=== PATIENT | male | born 1940 | race Caucasian/White ===

== ENCOUNTER → 2016-06-25 | Outpatient (CLI) | payer MEDICARE, BC ==
[~2016-06-25] MED LIST: /AMIO20TA; /ONDA4TA OR; /PROM25SU RE; /SCOPPA TD; /WARF25TA OR; /WARF5TA; /WARF5TA OR; ACET65TA; ACET65TA OR; AMBI10TA OR; AMBI5TAB OR; AMIO0.1T PO; ASPI81TA45; ASPI81TA83 OR; ASPI81TA85 PO; ATARAX OR; BABY81CH OR; CARV12.5 PO; CELE10TA OR; COLA100C2; COLA100C2 OR; CORE3.12 OR; CORE6.25; CORE6.25 OR; COUM1TAB17 PO; COUM7.5T PO; CRES20TA; CRES20TA OR; CRES20TA PO; DEXILANT PO; DOCU10CA PO; FISH1000 OR; FISH120012 PO; FLON1SPR; HYDR25TA6; HYDR25TA6 OR; LEVO100T5 PO; LISI20TA5 OR; LOVE1INJ2 SC; MEGA40SU OR; META0.52 PO; METO10TA2 OR; MIRALEX PO; Metamucil PO; OMEGA 3 FISH OIL PO; OMEP20TA7 OR; OMEP40CA2 PO; PLAV75TA38 PO; POLYOPD OU; PRIN20TA3; PRIN5TAB PO; REST0.05 OU; RESTASIS OU; SYNT50TA; SYNT50TA OR; TOPR25TA; TRIC145T19; TRIC145T19 OR; TYL PO; TYLE325T5 PO; XANA0.25 OR; amiodarone PO
[2016-06-26 14:20] LABS: ANTI SCLERODERMA ANTIBODIES <0.2 AI (0.0-0.9); SJOGREN'S ANTI SS-A <0.2 AI (0.0-0.9); SJOGREN'S ANTI SS-B <0.2 AI (0.0-0.9)
== END ==
LOC: M WUC 09:44
DX: I73.00 Raynaud's syndrome without gangrene (principal)

== ENCOUNTER → 2016-08-09 | Outpatient (REF) | payer MEDICARE, BC ==
[2016-08-09 17:39] LABS: ALBUMIN 3.7 GM/DL (3.2-5.2); ALBUMIN/GLOBULIN RATIO 1.32 (1.00-1.93); ALKALINE PHOSPHATASE 91 U/L (45-117); ALT/SGPT 26 U/L (12-78); ANION GAP 7 MEQ/L (8-16); AST/SGOT 20 U/L (15-37); BILIRUBIN,TOTAL 0.6 MG/DL (0.2-1.0); BLOOD UREA NITROGEN 24 MG/DL (7-18); CALCIUM LEVEL 8.2 MG/DL (8.8-10.2); CARBON DIOXIDE LEVEL 27 MEQ/L (21-32); CHLORIDE LEVEL 111 MEQ/L (98-107); CREATININE FOR GFR 1.15 MG/DL (0.70-1.30); GLOMERULAR FILTRATION RATE > 60.0 (>42); GLUCOSE, FASTING 55 MG/DL (83-110); POTASSIUM SERUM 4.2 MEQ/L (3.5-5.1); SODIUM LEVEL 145 MEQ/L (136-145); TOTAL PROTEIN 6.5 GM/DL (6.4-8.2)
== END ==
LOC: M LABDRWCV 16:23
PROVIDERS: ATTEND Internal Medicine
DX: I10 Essential (primary) hypertension (principal); F41.9 Anxiety disorder, unspecified; R73.09 Other abnormal glucose

== ENCOUNTER → 2016-12-29 | Outpatient (CLI) | payer MEDICARE, BC ==
[~2016-12-29] MED LIST changes: +PLAV1TAB2 PO; -PLAV75TA38 PO
[2016-12-29 14:20] LABS: WHITE BLOOD COUNT 7.1 10^3/uL (4.0-10.0)
[2016-12-29 14:27] LABS: MEAN CORPUSCULAR VOLUME 67.8 fl (80.0-96.0); RED CELL DISTRIBUTION WIDTH 21.3 % (11.5-14.5)
[2016-12-29 15:14] LABS: ALBUMIN 3.9 GM/DL (3.2-5.2); ALBUMIN/GLOBULIN RATIO 1.34 (1.00-1.93); ALKALINE PHOSPHATASE 80 U/L (45-117); ALT/SGPT 17 U/L (12-78); ANION GAP 7 MEQ/L (8-16); AST/SGOT 12 U/L (15-37); BILIRUBIN,TOTAL 0.6 MG/DL (0.2-1.0); BLOOD UREA NITROGEN 30 MG/DL (7-18); CARBON DIOXIDE LEVEL 27 MEQ/L (21-32); CHLORIDE LEVEL 106 MEQ/L (98-107); CHOLESTEROL LEVEL 98 MG/DL (<200); CREATININE FOR GFR 1.22 MG/DL (0.70-1.30); GLOMERULAR FILTRATION RATE > 60.0 (>42); GLUCOSE, FASTING 103 MG/DL (83-110); POTASSIUM SERUM 4.9 MEQ/L (3.5-5.1); SODIUM LEVEL 140 MEQ/L (136-145); TOTAL PROTEIN 6.8 GM/DL (6.4-8.2); TRIGLYCERIDES LEVEL 65 MG/DL (<150)
== END ==
LOC: M WUC 10:11
PROVIDERS: ATTEND Internal Medicine
DX: R06.09 Other forms of dyspnea (principal); I10 Essential (primary) hypertension; R73.09 Other abnormal glucose

== ENCOUNTER → 2017-02-01 | Outpatient (CLI) | payer MEDICARE, BC ==
[2017-02-01 17:33] LABS: MEAN CORPUSCULAR HEMOGLOBIN 21.3 pg (27.0-33.0); MEAN CORPUSCULAR HGB CONC 28.2 g/dl (32.0-36.5); MEAN CORPUSCULAR VOLUME 75.4 fl (80.0-96.0); PLATELET COUNT, AUTOMATED 177 10^3/uL (150-450); WHITE BLOOD COUNT 6.6 10^3/uL (4.0-10.0)
== END ==
LOC: M WUC 12:24
PROVIDERS: ATTEND Internal Medicine
DX: D50.8 Other iron deficiency anemias (principal)

== ENCOUNTER → 2017-03-02 | Outpatient (CLI) | payer MEDICARE, BC ==
[2017-03-02 13:14] LABS: MEAN CORPUSCULAR HEMOGLOBIN 24.5 pg (27.0-33.0); MEAN CORPUSCULAR HGB CONC 30.5 g/dl (32.0-36.5); MEAN CORPUSCULAR VOLUME 80.3 fl (80.0-96.0); PLATELET COUNT, AUTOMATED 199 10^3/uL (150-450); WHITE BLOOD COUNT 8.9 10^3/uL (4.0-10.0)
== END ==
LOC: M WUC 11:43
PROVIDERS: ATTEND Internal Medicine
DX: D50.8 Other iron deficiency anemias (principal)

== ENCOUNTER → 2017-07-05 | Outpatient (CLI) | payer MEDICARE, BC ==
[2017-07-05 12:01] LABS: HEMATOCRIT 47.7 % (42.0-52.0); HEMOGLOBIN 15.8 g/dl (13.5-17.5); MEAN CORPUSCULAR HEMOGLOBIN 31.4 pg (27.0-33.0); MEAN CORPUSCULAR HGB CONC 33.1 g/dl (32.0-36.5); MEAN CORPUSCULAR VOLUME 94.8 fl (80.0-96.0); PLATELET COUNT, AUTOMATED 140 10^3/uL (150-450); RED BLOOD COUNT 5.03 10^6/uL (4.30-6.10); RED CELL DISTRIBUTION WIDTH 15.8 % (11.5-14.5); WHITE BLOOD COUNT 6.5 10^3/uL (4.0-10.0)
[2017-07-05 12:22] LABS: ALBUMIN 3.9 GM/DL (3.2-5.2); ALBUMIN/GLOBULIN RATIO 1.26 (1.00-1.93); ALKALINE PHOSPHATASE 106 U/L (45-117); ALT/SGPT 32 U/L (12-78); ANION GAP 5 MEQ/L (8-16); AST/SGOT 31 U/L (7-37); BILIRUBIN,TOTAL 0.8 MG/DL (0.2-1.0); BLOOD UREA NITROGEN 26 MG/DL (7-18); CALCIUM LEVEL 9.2 MG/DL (8.8-10.2); CARBON DIOXIDE LEVEL 30 MEQ/L (21-32); CHLORIDE LEVEL 107 MEQ/L (98-107); CREATININE FOR GFR 1.22 MG/DL (0.70-1.30); GLOMERULAR FILTRATION RATE > 60.0 (>42); GLUCOSE, FASTING 103 MG/DL (70-100); MAGNESIUM LEVEL 1.9 MG/DL (1.8-2.4); POTASSIUM SERUM 4.2 MEQ/L (3.5-5.1); SODIUM LEVEL 142 MEQ/L (136-145)
[2017-07-05 13:09] LABS: ESTIMATED AVERAGE GLUCOSE 163 MG/DL (60-110); HEMOGLOBIN A1c 7.3 %
== END ==
LOC: M WUC 09:08
DX: I10 Essential (primary) hypertension (principal); R73.09 Other abnormal glucose; D50.8 Other iron deficiency anemias
CPT/HCPCS: 83735

== ENCOUNTER → 2017-08-08 | Outpatient (CLI) | payer MEDICARE, BC ==
[2017-08-08 17:24] LABS: ANION GAP 6 MEQ/L (8-16); BLOOD UREA NITROGEN 23 MG/DL (7-18); CALCIUM LEVEL 8.6 MG/DL (8.8-10.2); CARBON DIOXIDE LEVEL 28 MEQ/L (21-32); CHLORIDE LEVEL 105 MEQ/L (98-107); CREATININE FOR GFR 1.23 MG/DL (0.70-1.30); GLOMERULAR FILTRATION RATE > 60.0 (>42); GLUCOSE, FASTING 130 MG/DL (70-100); MAGNESIUM LEVEL 1.9 MG/DL (1.8-2.4); POTASSIUM SERUM 4.2 MEQ/L (3.5-5.1); SODIUM LEVEL 139 MEQ/L (136-145)
== END ==
LOC: M WUC 14:46
DX: I42.9 Cardiomyopathy, unspecified (principal)
CPT/HCPCS: 83735

== ENCOUNTER → 2017-12-19 | Outpatient (CLI) | payer MEDICARE, BC ==
[2017-12-19 13:43] LABS: HEMOGLOBIN 15.6 g/dl (13.5-17.5); MEAN CORPUSCULAR HEMOGLOBIN 31.6 pg (27.0-33.0); MEAN CORPUSCULAR HGB CONC 33.2 g/dl (32.0-36.5); MEAN CORPUSCULAR VOLUME 95.1 fl (80.0-96.0); PLATELET COUNT, AUTOMATED 143 10^3/uL (150-450); RED BLOOD COUNT 4.94 10^6/uL (4.30-6.10); RED CELL DISTRIBUTION WIDTH 14.8 % (11.5-14.5); WHITE BLOOD COUNT 7.8 10^3/uL (4.0-10.0)
[2017-12-19 14:15] LABS: ALBUMIN 3.7 GM/DL (3.2-5.2); ALBUMIN/GLOBULIN RATIO 1.19 (1.00-1.93); ALKALINE PHOSPHATASE 90 U/L (45-117); ALT/SGPT 26 U/L (12-78); ANION GAP 6 MEQ/L (8-16); AST/SGOT 25 U/L (7-37); BILIRUBIN,TOTAL 0.9 MG/DL (0.2-1.0); BLOOD UREA NITROGEN 22 MG/DL (7-18); CALCIUM LEVEL 8.1 MG/DL (8.8-10.2); CARBON DIOXIDE LEVEL 29 MEQ/L (21-32); CHLORIDE LEVEL 107 MEQ/L (98-107); CHOLESTEROL LEVEL 119 MG/DL (<200); CHOLESTEROL RISK RATIO 2.767 (<5); CREATININE FOR GFR 1.21 MG/DL (0.70-1.30); GLOMERULAR FILTRATION RATE > 60.0 (>42); GLUCOSE, FASTING 131 MG/DL (70-100); HDL CHOLESTEROL 43 MG/DL (>40); LDL CHOLESTEROL 51 MG/DL (<100); MAGNESIUM LEVEL 1.9 MG/DL (1.8-2.4); NON-HDL-C 76 MG/DL; POTASSIUM SERUM 4.7 MEQ/L (3.5-5.1); SODIUM LEVEL 142 MEQ/L (136-145); TOTAL PROTEIN 6.8 GM/DL (6.4-8.2); TRIGLYCERIDES LEVEL 124 MG/DL (<150)
[2017-12-19 14:27] LABS: ESTIMATED AVERAGE GLUCOSE 143 MG/DL (60-110); HEMOGLOBIN A1c 6.6 %
== END ==
LOC: M WUC 08:55
DX: D50.8 Other iron deficiency anemias (principal); R73.09 Other abnormal glucose; Z79.899 Other long term (current) drug therapy
CPT/HCPCS: 83735

== ENCOUNTER → 2018-01-17 | Outpatient (REF) | payer MEDICARE, BC ==
[2018-01-17 15:55] LABS: INR 3.35; PROTHROMBIN TIME 34.7 SECONDS (12.1-14.4)
== END ==
LOC: M SFHCPLAZ 14:35
DX: Z79.01 Long term (current) use of anticoagulants (principal)
CPT/HCPCS: 85610

== ENCOUNTER → 2018-01-23 | Outpatient (CLI) | payer MEDICARE, BC ==
[2018-01-23 18:32] LABS: INR 3.63
== END ==
LOC: M WUC 11:13
DX: I12.9 Hypertensive chronic kidney disease with stage 1 through stage 4 chronic kidney disease, or unspecified chronic kidney disease (principal); Z51.81 Encounter for therapeutic drug level monitoring; Z79.01 Long term (current) use of anticoagulants; Z95.2 Presence of prosthetic heart valve
CPT/HCPCS: 85610

== ENCOUNTER → 2018-01-30 | Outpatient (CLI) | payer MEDICARE, BC ==
[2018-01-30 17:31] LABS: PROTHROMBIN TIME 35.1 SECONDS (12.1-14.4)
== END ==
LOC: M WUC 10:51
DX: I12.9 Hypertensive chronic kidney disease with stage 1 through stage 4 chronic kidney disease, or unspecified chronic kidney disease (principal); Z51.81 Encounter for therapeutic drug level monitoring; Z79.01 Long term (current) use of anticoagulants; Z95.2 Presence of prosthetic heart valve
CPT/HCPCS: 85610

== ENCOUNTER → 2018-03-06 | Outpatient (REF) | payer MEDICARE, BC ==
[2018-03-06 16:54] LABS: CALCIUM LEVEL 8.8 MG/DL (8.8-10.2); CREATININE FOR GFR 1.53 MG/DL (0.70-1.30); GLOMERULAR FILTRATION RATE 47.3 (>42); MAGNESIUM LEVEL 2.1 MG/DL (1.8-2.4); POTASSIUM SERUM 3.8 MEQ/L (3.5-5.1)
== END ==
LOC: M LABDRAWP 13:43
PROVIDERS: ATTEND Internal Medicine Cardiovascular Disease
DX: I48.91 Unspecified atrial fibrillation (principal)

== ENCOUNTER → 2018-06-23 | Outpatient (CLI) | payer MEDICARE, BC ==
[~2018-06-23] MED LIST changes: -/AMIO20TA; -/ONDA4TA OR; -/SCOPPA TD; -/WARF25TA OR; -/WARF5TA; -/WARF5TA OR; +AMIO1TAB; +COUM1TAB17; +COUM1TAB17 OR; +COUM1TAB18 OR; -CRES20TA PO; +CRES20TA2 PO; +METO-1; +ONDA-1 OR; +SCOP1PAT TD; -TOPR25TA
[2018-06-23 17:38] LABS: HEMATOCRIT 44.4 % (42.0-52.0); MEAN CORPUSCULAR HGB CONC 31.5 g/dl (32.0-36.5); MEAN CORPUSCULAR VOLUME 98.2 fl (80.0-96.0); PLATELET COUNT, AUTOMATED 168 10^3/uL (150-450); RED BLOOD COUNT 4.52 10^6/uL (4.30-6.10); WHITE BLOOD COUNT 7.6 10^3/uL (4.0-10.0)
[2018-06-23 18:04] LABS: ALT/SGPT 18 U/L (12-78); BILIRUBIN,TOTAL 0.6 MG/DL (0.2-1.0); BLOOD UREA NITROGEN 27 MG/DL (7-18); CALCIUM LEVEL 8.7 MG/DL (8.8-10.2); CARBON DIOXIDE LEVEL 29 MEQ/L (21-32); CHLORIDE LEVEL 106 MEQ/L (98-107); CREATININE FOR GFR 1.18 MG/DL (0.70-1.30); GLOMERULAR FILTRATION RATE > 60.0 (>42); GLUCOSE, FASTING 112 MG/DL (70-100); HEMOGLOBIN A1c 6.4 %; POTASSIUM SERUM 4.3 MEQ/L (3.5-5.1); SODIUM LEVEL 143 MEQ/L (136-145); TOTAL PROTEIN 6.9 GM/DL (6.4-8.2)
[2018-06-23 19:20] LABS: CREATININE, URINE 52.5 MG/DL; MALB URINE SIEMENS 8.4 MG/L
== END ==
LOC: M WUC 11:04
PROVIDERS: ATTEND Internal Medicine
DX: I12.9 Hypertensive chronic kidney disease with stage 1 through stage 4 chronic kidney disease, or unspecified chronic kidney disease (principal); E11.9 Type 2 diabetes mellitus without complications; Z79.01 Long term (current) use of anticoagulants

== ENCOUNTER → 2018-07-17 | Outpatient (CLI) | payer MEDICARE, BC ==
[2018-07-17 12:39] LABS: HEMATOCRIT 44.9 % (42.0-52.0); HEMOGLOBIN 14.4 g/dl (13.5-17.5); MEAN CORPUSCULAR HEMOGLOBIN 30.8 pg (27.0-33.0); MEAN CORPUSCULAR HGB CONC 32.1 g/dl (32.0-36.5); MEAN CORPUSCULAR VOLUME 96.1 fl (80.0-96.0); PLATELET COUNT, AUTOMATED 163 10^3/uL (150-450); RED BLOOD COUNT 4.67 10^6/uL (4.30-6.10); WHITE BLOOD COUNT 8.5 10^3/uL (4.0-10.0)
[2018-07-17 12:41] LABS: BLOOD UREA NITROGEN 27 MG/DL (7-18); CALCIUM LEVEL 8.5 MG/DL (8.8-10.2); CARBON DIOXIDE LEVEL 31 MEQ/L (21-32); CHLORIDE LEVEL 108 MEQ/L (98-107); CREATININE FOR GFR 1.19 MG/DL (0.70-1.30); GLOMERULAR FILTRATION RATE > 60.0 (>42); GLUCOSE, FASTING 66 MG/DL (70-100); POTASSIUM SERUM 4.1 MEQ/L (3.5-5.1); SODIUM LEVEL 143 MEQ/L (136-145)
[2018-07-17 13:01] LABS: INR 2.21
== END ==
LOC: M WUC 10:07
PROVIDERS: ATTEND Internal Medicine Cardiovascular Disease
DX: I47.2 Ventricular tachycardia (principal)

== ENCOUNTER → 2018-09-15 | Outpatient (CLI) | payer MEDICARE, BC ==
[2018-09-15 09:32] LABS: BASO % 0.3 % (0.0-1.0); HEMATOCRIT 40.3 % (42.0-52.0); HEMOGLOBIN 12.7 g/dl (13.5-17.5); LYMPH # 0.6 10^3/uL (1.5-4.5); LYMPH % 7.2 % (24.0-44.0); MEAN CORPUSCULAR HEMOGLOBIN 28.2 pg (27.0-33.0); MEAN CORPUSCULAR HGB CONC 31.5 g/dl (32.0-36.5); MEAN CORPUSCULAR VOLUME 89.6 fl (80.0-96.0); MONO # 1.1 10^3/uL (0.0-0.8); MONO % 14.5 % (0.0-5.0); NEUTROPHILS # 5.9 10^3/uL (1.8-7.7); NEUTROPHILS % 77.7 % (36.0-66.0); PLATELET COUNT, AUTOMATED 175 10^3/uL (150-450); WHITE BLOOD COUNT 7.6 10^3/uL (4.0-10.0)
[2018-09-15 09:42] LABS: INR 3.16; PROTHROMBIN TIME 32.4 SECONDS (11.8-14.0)
[2018-09-15 10:09] LABS: ALBUMIN 3.6 GM/DL (3.2-5.2); ALT/SGPT 19 U/L (12-78); BILIRUBIN,TOTAL 1.1 MG/DL (0.2-1.0); BLOOD UREA NITROGEN 25 MG/DL (7-18); C REACTIVE PROTEIN QUANTITATIV 0.43 MG/DL (0.00-0.30); CALCIUM LEVEL 8.3 MG/DL (8.8-10.2); CARBON DIOXIDE LEVEL 26 MEQ/L (21-32); CHLORIDE LEVEL 110 MEQ/L (98-107); CHOLESTEROL LEVEL 96 MG/DL (<200); CHOLESTEROL RISK RATIO 2.232 (<5); CREATININE FOR GFR 1.23 MG/DL (0.70-1.30); GLOMERULAR FILTRATION RATE > 60.0 (>42); GLUCOSE, FASTING 166 MG/DL (70-100); HDL CHOLESTEROL 43 MG/DL (>40); LDL CHOLESTEROL 40 MG/DL (<100); MAGNESIUM LEVEL 2.1 MG/DL (1.8-2.4); NON-HDL-C 53 MG/DL; POTASSIUM SERUM 4.2 MEQ/L (3.5-5.1); SODIUM LEVEL 143 MEQ/L (136-145); TOTAL PROTEIN 6.8 GM/DL (6.4-8.2); TRIGLYCERIDES LEVEL 67 MG/DL (<150)
[2018-09-15 10:20] LABS: HEMOGLOBIN A1c 7.7 %
== END ==
LOC: M WUC 08:07
PROVIDERS: ATTEND Internal Medicine Cardiovascular Disease
DX: Z95.2 Presence of prosthetic heart valve (principal); I50.20 Unspecified systolic (congestive) heart failure

== ENCOUNTER → 2019-01-09 | Outpatient (CLI) | payer MEDICARE, BC ==
[~2019-01-09] MED LIST changes: -OMEP40CA2 PO; +OMEP40CA97 PO
--- NOTE | 2019-01-16 11:03 | REP ---
CT CHEST WITHOUT IV CONTRAST: CT chest performed without IV contrast. Sagittal and coronal reconstruction images are performed. Comparison is made with prior study of 11/30/2017 and 11/15/2016 from outside institutions. There is diffuse fibrotic change in the right lung particularly in the inferior aspect of right middle and lower lobes. There is right lower lobe bronchiectasis. Previously noted infiltrate on the 05/25/2018 exam in the posterior aspect of the right lower lobe has resolved. The reticulonodular infiltrate in the right upper lobe has also resolved. Calcified granuloma is again seen in the right costophrenic sulcus. There is elevation of the left hemidiaphragm. Just above the left diaphragm there is a band of consolidative opacity with air bronchograms and bronchiectasis with multiple tiny calcifications within this area of consolidative parenchymal opacity. Findings are unchanged since the 05/25/2018 exam and have mildly increased since the 11/30/2017 exam. There is stable dilatation of the ascending thoracic aorta 5.3 cm in AP dimension. There is moderate atherosclerotic calcification of the thoracic aorta. Left sided pacemaker is noted. Heart is slightly enlarged. There is no pleural or pericardial effusion. No significantly enlarged mediastinal, hilar, or chest wall lymph nodes are seen. There are degenerative changes of the thoracic spine. IMPRESSION: Resolution of reticulonodular infiltrate in the right upper lobe and parenchymal infiltrate in the right posterior lower lobe when compared to prior study 05/25/2018. There is a band of consolidative parenchymal opacity just above the elevated left hemidiaphragm with multiple tiny associated calcifications. This is stable since 05/25/2018, but has mildly increased since the other prior chest CTs including 11/30/2017. Continued followup for that opacity is recommended. Electronically Signed by Momo Conrad MD 01/16/2019 02:01 P
== END ==
LOC: M RAD 13:12
DX: J47.9 Bronchiectasis, uncomplicated (principal); R91.8 Other nonspecific abnormal finding of lung field

== ENCOUNTER → 2019-01-20 | Outpatient (CLI) | payer MEDICARE, BC ==
[2019-01-20 12:43] LABS: BASO % 0.4 % (0.0-1.0); HEMATOCRIT 47.1 % (42.0-52.0); HEMOGLOBIN 14.7 g/dl (13.5-17.5); LYMPH # 0.8 10^3/uL (1.5-5.0); MEAN CORPUSCULAR HEMOGLOBIN 28.3 pg (27.0-33.0); MEAN CORPUSCULAR HGB CONC 31.2 g/dl (32.0-36.5); MEAN CORPUSCULAR VOLUME 90.8 fl (80.0-96.0); MONO # 1.3 10^3/uL (0.0-0.8); MONO % 16.8 % (0.0-5.0); NEUTROPHILS # 5.6 10^3/uL (1.5-8.5); NEUTROPHILS % 72.4 % (36.0-66.0); PLATELET COUNT, AUTOMATED 173 10^3/uL (150-450); RED BLOOD COUNT 5.19 10^6/uL (4.30-6.10); WHITE BLOOD COUNT 7.7 10^3/uL (4.0-10.0)
[2019-01-20 13:00] LABS: ALBUMIN 3.8 GM/DL (3.2-5.2); ALT/SGPT 24 U/L (12-78); BILIRUBIN,TOTAL 0.9 MG/DL (0.2-1.0); BLOOD UREA NITROGEN 25 MG/DL (7-18); CALCIUM LEVEL 8.9 MG/DL (8.8-10.2); CARBON DIOXIDE LEVEL 29 MEQ/L (21-32); CHLORIDE LEVEL 104 MEQ/L (98-107); CREATININE FOR GFR 1.39 MG/DL (0.70-1.30); GLOMERULAR FILTRATION RATE 52.7 (>42); GLUCOSE, FASTING 175 MG/DL (70-100); IMMUNOGLOBULIN G 1190 MG/DL (681-1648); POTASSIUM SERUM 4.4 MEQ/L (3.5-5.1); SODIUM LEVEL 139 MEQ/L (136-145); TOTAL PROTEIN 7.4 GM/DL (6.4-8.2)
[2019-01-20 13:02] LABS: TOTAL PROTEIN,RANDOM URINE < 5.0 MG/DL (0.0-12.0); URINE TOTAL PROTEIN < 5.0 MG/DL (0-12)
[2019-01-22 11:12] LABS: ALBUMIN 4.31 GM/DL (3.29-5.55); ALBUMIN % 58.2 % (55.8-66.1); ALPHA-1-GLOBULIN % 3.6 % (2.9-4.9); ALPHA-1-GLOBULINS 0.27 GM/DL (0.17-0.41); ALPHA-2-GLOBULINS 0.74 GM/DL (0.42-0.99); BETA-1-GLOBULINS 0.46 GM/DL (0.28-0.60); BETA-1-GLOBULINS % 6.2 % (4.7-7.2); BETA-2-GLOBULINS 0.36 GM/DL (0.19-0.55); BETA-2-GLOBULINS % 4.9 % (3.2-6.5); GAMMA GLOBULIN % 17.1 % (11.1-18.8); GAMMA GLOBULINS 1.27 GM/DL (0.65-1.58)
== END ==
LOC: M WUC 08:44
PROVIDERS: ATTEND Internal Medicine
DX: D47.2 Monoclonal gammopathy (principal)

== ENCOUNTER → 2019-01-24 | Outpatient (REF) | payer MEDICARE, BC ==
[2019-01-25 16:20] LABS: TOTAL PROTEIN,RANDOM URINE 6.1 MG/DL (0.0-12.0); URINE TOTAL PROTEIN 6.1 MG/DL (0-12)
== END ==
LOC: M LAB REF 15:32
DX: D47.2 Monoclonal gammopathy (principal)

== ENCOUNTER → 2019-02-10 | Outpatient (CLI) | payer MEDICARE, BC ==
[2019-02-10 13:25] LABS: HEMOGLOBIN A1c 7.8 %
== END ==
LOC: M WUC 09:19
PROVIDERS: ATTEND Internal Medicine
DX: E03.9 Hypothyroidism, unspecified (principal); E11.9 Type 2 diabetes mellitus without complications

== ENCOUNTER → 2019-06-12 | Outpatient (CLI) | payer MEDICARE, BC ==
[2019-06-12 13:24] LABS: INFLUENZA A AMPLIFICATION NEGATIVE (NEGATIVE); INFLUENZA B AMPLIFICATION NEGATIVE (NEGATIVE)
== END ==
LOC: M LABSMTC 11:54
PROVIDERS: ATTEND Family Medicine
DX: Z11.59 Encounter for screening for other viral diseases (principal); Z20.828 Contact with and (suspected) exposure to other viral communicable diseases
CPT/HCPCS: 87502; U0002

== ENCOUNTER → 2019-07-04 | Outpatient (REF) | payer MEDICARE, BC ==
[2019-07-04 09:17] LABS: HEMATOCRIT 46.8 % (42.0-52.0); HEMOGLOBIN 14.6 g/dl (13.5-17.5); MEAN CORPUSCULAR HEMOGLOBIN 27.9 pg (27.0-33.0); MEAN CORPUSCULAR HGB CONC 31.2 g/dl (32.0-36.5); MEAN CORPUSCULAR VOLUME 89.3 fl (80.0-96.0); PLATELET COUNT, AUTOMATED 158 10^3/uL (150-450); RED BLOOD COUNT 5.24 10^6/uL (4.30-6.10); WHITE BLOOD COUNT 7.5 10^3/uL (4.0-10.0)
[2019-07-04 09:32] LABS: HEMOGLOBIN A1c 8.1 %
[2019-07-04 09:51] LABS: ALBUMIN 3.7 GM/DL (3.2-5.2); BILIRUBIN,TOTAL 0.9 MG/DL (0.2-1.0); CALCIUM LEVEL 8.8 MG/DL (8.8-10.2); CHOLESTEROL RISK RATIO 2.627 (<5); CREATININE FOR GFR 1.39 MG/DL (0.70-1.30); GLOMERULAR FILTRATION RATE 52.7 (>42); MAGNESIUM LEVEL 2.3 MG/DL (1.8-2.4); POTASSIUM SERUM 4.6 MEQ/L (3.5-5.1); TOTAL PROTEIN 7.6 GM/DL (6.4-8.2)
[2019-07-04 09:57] LABS: PTH INTACT 99.8 PG/ML (18.5-88.0)
[2019-07-04 21:07] LABS: THYROID STIMULATING HORMONE 3.71 uIU/ML (0.358-3.740)
== END ==
LOC: M SFHCPLAZ 08:03
PROVIDERS: ATTEND Internal Medicine
DX: Z79.01 Long term (current) use of anticoagulants (principal); E11.9 Type 2 diabetes mellitus without complications; E03.9 Hypothyroidism, unspecified

== ENCOUNTER 2019-08-14 09:57 | Observation (INO) | payer MEDICARE, BC ==
[~2019-08-14] VITALS: Ht 182.9 cm; Wt 88.6 kg
[2019-08-14] MEDS ORDERED: METF750T36 (10:19)
[2019-08-14] MEDS ORDERED: FOLI1TAB11 (10:19)
[2019-08-14] MEDS ORDERED: PANT40TA3 (10:19)
[2019-08-14] MEDS ORDERED: PARO20TA3 (10:19)
[2019-08-14] MEDS ORDERED: SPIR12.9 (10:19)
[2019-08-14] MEDS ORDERED: TORS20TA2 (10:19)
[2019-08-14] MEDS ORDERED: ROSU20TA5 (10:19)
[2019-08-14] MEDS ORDERED: BUDE10.2 (10:21)
[2019-08-14 11:17] LABS: BASO % 0.2 % (0.0-1.0); HEMATOCRIT 42.5 % (42.0-52.0); HEMOGLOBIN 13.8 g/dl (13.5-17.5); LYMPH # 0.6 10^3/uL (1.5-5.0); LYMPH % 4.2 % (24.0-44.0); MEAN CORPUSCULAR HGB CONC 32.5 g/dl (32.0-36.5); MEAN CORPUSCULAR VOLUME 89.3 fl (80.0-96.0); MONO # 1.3 10^3/uL (0.0-0.8); MONO % 9.9 % (0.0-5.0); NEUTROPHILS # 11.3 10^3/uL (1.5-8.5); NEUTROPHILS % 85.2 % (36.0-66.0); PLATELET COUNT, AUTOMATED 139 10^3/uL (150-450); RED BLOOD COUNT 4.76 10^6/uL (4.30-6.10); WHITE BLOOD COUNT 13.3 10^3/uL (4.0-10.0)
[2019-08-14 11:34] LABS: INR 2.79; PROTHROMBIN TIME 29.3 SECONDS (11.8-14.0)
[2019-08-14 11:35] LABS: PARTIAL THROMBOPLASTIN TIME 41.1 SECONDS (25.0-38.4)
[2019-08-14 11:46] LABS: ALBUMIN 3.5 GM/DL (3.2-5.2); BILIRUBIN,DIRECT 0.5 MG/DL (0.0-0.2); BILIRUBIN,TOTAL 2.3 MG/DL (0.2-1.0); CALCIUM LEVEL 8.5 MG/DL (8.8-10.2); CREATININE FOR GFR 1.53 MG/DL (0.70-1.30); GLOMERULAR FILTRATION RATE 47.2 (>42); POTASSIUM SERUM 3.8 MEQ/L (3.5-5.1); TOTAL PROTEIN 7.2 GM/DL (6.4-8.2)
[2019-08-14] MEDS ORDERED: cefTRIAXone SOD 1 GM in D5W MINI-BAG PLUS 50 ML IV ONE (14:00)
[2019-08-14] MEDS ORDERED: ACETAMINOPHEN TAB 650MG DOSE (2X325MG) PO ONE (14:00)
[2019-08-14] MEDS ORDERED: METF750T36 PO (14:39)
[2019-08-14] MEDS ORDERED: LEVO112T2 PO (14:39)
[2019-08-14] MEDS ORDERED: SYMB16INH INH (14:39)
[2019-08-14] MEDS ORDERED: POLYOPD OU (14:39)
[2019-08-14] MEDS ORDERED: RA S8.6T3 PO (14:39)
[2019-08-14] MEDS ORDERED: PANT40TA3 PO (14:39)
[2019-08-14] MEDS ORDERED: FISH1000 PO (14:39)
[2019-08-14] MEDS ORDERED: REST0.05 OU (14:39)
[2019-08-14] MEDS ORDERED: FAMO40TA3 PO (14:39)
[2019-08-14] MEDS ORDERED: FOLI1TAB11 PO (14:39)
[2019-08-14] MEDS ORDERED: WARF-23 PO (14:39)
[2019-08-14] MEDS ORDERED: PARO20TA3 PO (14:39)
[2019-08-14] MEDS ORDERED: ACET500T15 PO (14:39)
[2019-08-14] MEDS ORDERED: CARV6.25 PO (14:39)
[2019-08-14] MEDS ORDERED: TORS20TA2 PO (14:39)
[2019-08-14] MEDS ORDERED: TIKO250C PO (14:39)
[2019-08-14] MEDS ORDERED: ROSU20TA5 PO (14:39)
[2019-08-14] MEDS ORDERED: PLAV1TAB2 PO (14:39)
[2019-08-14] MEDS ORDERED: SPIR12.9 INH (14:39)
[2019-08-14] MEDS ORDERED: WARF-18 PO (14:39)
[2019-08-14] MEDS ORDERED: MORPHINE 2 MG/ML 1ML VIAL (J2270) IV ONE (15:45)
--- NOTE | 2019-08-14 15:45 | REP ---
REASON: Elevated bilirubin. Multiple ultrasonographic images of the hepatic parenchyma echo pattern show normal appearing echoes throughout without evidence of a mass or ductal dilatation. The common bile duct measures between 6-7 mm. The gallbladder is within normal limits. There is no pericholecystic edema or gallbladder thickening. There are no choleliths. The imaged portion of the pancreas and right kidney are within normal limits for the patient's age. There is no free fluid. IMPRESSION: Unremarkable right upper quadrant ultrasound. Electronically Signed by Iain Miller DO 08/14/2019 04:05 P
[2019-08-14] MEDS ORDERED: PHENAZOPYRIDINE 100 MG TAB PO ONE (16:30)
--- NOTE | 2019-08-14 16:40 | HPEPDOC ---
[facility] Medical History & Physical Date of Admission August 14, 2019 Date of Service: August 14, 2019 Primary Care Physician: Ajay Ceballos Attending Physician: ALTHEA CROWDER MD History and Physical CHIEF COMPLAINT: fevers, lower abdominal pain, urinary frequency HISTORY OF PRESENT ILLNESS: Kareem Prado is a 78 YO M with history of atrial fibrillation, history of aortic valve replacement who presents with 48hours fevers, chills, crampy lower abdominal pain and dysuria symptoms. He states that he has felt that is urination has been "different"--not necessarily burning but a feeling of fullness and pressure when he urinates. He denies any back pain or flank pain. He has never had a UTI before. He has not had any urinary retention or difficulty urinating--he states that he has been running to the bathroom frequently and has been drinking a lot of fluids. He does report that his was ill with flu-like symptoms one day prior to his symptoms having started. He did also recently travel to [place] for an echocardiogram. However, he has not had any respiratory symptoms--no cough, shortness of breath worse than his baseline, nor any fatigue/malaise. PAST MEDICAL HISTORY: Prediabetes. Hypothyroidism, unspecified. Unspecified atrial fibrillation. terminal carman (current) use of anticoagulants. Atherosclerotic heart disease of habematolel coronary artery without angina pectoris. Diverticulosis of large intestine without perforation or abscess without bleeding. Spinal stenosis, lumbar region. Personal history of colonic polyps. Obstructive uropathy. Personal history of malignant melanoma. Hypercholesterolemia. Seasonal allergic rhinitis due to pollen. Chronic kidney disease, stage 3. Chronic obstructive pulmonary disease, unspecified COPD type. Gastroesophageal reflux disease without esophagitis. Dysthymia. Esophageal motility disorder. Dyspnea on exertion. History of aortic valve replacement. Other iron deficiency anemia. History of central retinal artery occlusion. PAST SURGICAL HISTORY: Aortic valve replacement--mechanical--Nasima-Kasteddy 07-17-86 Pacemaker insertion 07-05-09 Arrhymogenic focus ablation 08/04/09 Colonoscopy 08-19-09 AICD and pacemaker 09-05-11 Moh's surgery for a BCCa/SCCa of forehead 04/2014? cClonoscopy-diverticulosis next one due in 5 years 10/28/2014 Stage I melanoma removed from chest 04/2015 Ablation and Willie with bubble study 06/2015 Upper endoscopy 01/26/2016 Repair of macular hole, OS 02/2016 Upper endoscopy, in [place] 04/2016 Bilateral cataract surgery, In [place] 04/2017 Left and right heart catheterizations 08/2018 Cardioversion for atrial fibrillation in [place] 03/2019 SOCIAL HISTORY: Former smoker, quit >10 years ago. Denies EtOH or other drugs FAMILY HISTORY: Father had cancer and at age 72. Mother at age 90 of congestive heart failure and complications of diabetes. A brother has had a bypass procedure and a sister has had a coronary stent. 2 daughters are healthy. ALLERGIES: Please see below. REVIEW OF SYSTEMS: CONSTITUTIONAL: Reports fevers for 48 hours as high as 101-102 EYES: Denies visual changes, double vision, blurry vision, floaters, or feeling like a curtain pulled down. ENT: Denies runny nose, epistaxis, sinus pain, tinnitus, sore throat, or odynophasia CARDIOVASCULAR: Denies chest pain or palpitations. RESPIRATORY: Denies cough, sputum production, wheezes, hemoptysis, or shortness of breath worse than his baseline GASTROINTESTINAL: Denies abdominal pain, nausea, vomiting, diarrhea GENITOURINARY: Reports lower suprapubic crampy pain and pressure with urination MSK: Denies joint swelling, decreased range of motion, crepitus, or new arthritis INTEGUMENTARY: Denies pruritus, rashes, or lesions NEUROLOGY: Denies any changes to sight/smell/hearing/taste, seizures, faint, headaches, paresthesias, anesthesias PSYCHIATRIC: Denies depression, anxiety, paranoia, anhedonia, or episodes of vic ENDOCRINE: reports polydipsia HEMATOLOGIC: Denies any anemia, purpura, or petechiae LYMPHATIC: Denies any new lumps or bumps anywhere HOME MEDICATIONS: Please see below. PHYSICAL EXAMINATION: VITAL SIGNS: Please see below. GENERAL APPEARANCE: Laying in bed, appears stated age, no acute distress, calm, cooperative HEENT: EOMI, PERRLA, neck is supple with no thyromegaly or lymphadenopathy RESPIRATORY: Lungs are clear to auscultation bilaterally with no adventitious breath sounds appreciated CARDIOVASCULAR: no JVD, irregularly irregular, artificial aortic valve can be auscultated, no obvious murmurs/rubs/gallops ABDOMEN: +BS, soft, slight tenderness to deep palpation of lower abdomen, no masses/organomegaly EXTREMITIES: no clubbing, cyanosis or edema noted NEUROLOGICAL: CN 2-12 intact, No obvious focal deficits PSYCHIATRIC: normal mood/affect Skin: very galvez skin, darkened skin in upper extremities LN: No significant cervical or inguinal lymphadenopathy LABORATORY DATA: See below. IMAGING: GALLBLADDER US: Multiple ultrasonographic images of the hepatic parenchyma echo pattern show normal appearing echoes throughout without evidence of a mass or ductal dilatation. The common bile duct measures between 6-7 mm. The gallbladder is within normal limits. There is no pericholecystic edema or gallbladder thickening. There are no choleliths. The imaged portion of the pancreas and right kidney are within normal limits for the patient's age. There is no free fluid. IMPRESSION: Unremarkable right upper quadrant ultrasound. MICROBIOLOGY: Please see below. ASSESSMENT: This is a 78 YO M with history of AF, CAD, hx obstructive uropathy who presents with 48 h fevers, chills, dysuria and crampy lower abdominal pain found to have fever, leukocytosis, elevated bilirubin and acute kidney injury on CKD 3. . PLAN: 1. Acute complicated UTI: Patient has fever, leukocytosis, dysuria symptoms -UA demonstrates 2+ blood (patient is on Coumadin), 2+ LE, 71 WBC concerning for UTI -Urine culture pending -Empiric Rocephin with plan to de-escalate pending culture 2. NATHALIE on CKD 3: Cr found to be 1.53 -Will hold Torsemide, Metformin -Renal US ordered 3. Hyperbilirubinemia: patient does not have RUQ pain. Possibly 2/2 medication side effect -Gallbladder US WNL -Will recheck in AM 4. Aortic valve replacement: -INR goal 3.0-3.5. Current INR 2.5. Will need extra dose of 2.5mg tonight -Will resume normal Coumadin dose tomorrow -Continue Plavix 5. Atrial fibrillation: -On Coumadin -Patient will take home Tikosyn, as this medication not on our formulary -Continue Coreg 6. GERD: -Continue Famotidine, Protonix 7. DM2: last known A1c 8.1% -SSI with hypoglycemic protocol -Holding Metformin while inpatient DVT ppx: on Coumadin DISPO: pending urine culture Attending attestation: I evaluated and examined the patient in person; I discussed the care with Resident in detail and agree with the plan above. Vital Signs Vital Signs Date Time Temp Pulse Resp B/P (MAP) Pulse Ox O2 Delivery O2 Flow Rate FiO2 08/14/19 13:14 100.1 70 18 101/59 (73) 96 Room Air Laboratory Data Labs 24H Laboratory Tests 2 08/14/19 10:37: Bedside Glucose ([facility] Panel) 187H 08/14/19 10:52: Urine Color YELLOW, Urine Appearance CLEAR, Urine pH 6.0, Urine Specific [place] 1.008, Urine Protein NEGATIVE, Urine Glucose (UA) NEGATIVE, Urine Ketones NEGA TIVE, Urine Blood 2+H, Urine Nitrite NEGATIVE, Urine Bilirubin NEGATIVE, Urine Urobilinogen 0.2, Urine Leukocyte Esterase 2+H, Urine WBC (Auto) 71H, Urine RBC (Auto) 12H, Urine Hyaline Casts (Auto) 0, Urine Bacteria (Auto) 2+H, Urine Squamous Epithelial Cells 0, Urine Amorphous Sediment SMALLH, Urine Mucus (Auto) SMALL, Urine Sperm (Auto) MODERATEH 08/14/19 10:59: Immature Granulocyte % (Auto) 0.5, Neutrophils (%) (Auto) 85.2H, Lymphocytes (%) (Auto) 4.2L, Monocytes (%) (Auto) 9.9H, Eosinophils (%) (Auto) 0.0, Basophils (%) (Auto) 0.2, Neutrophils # (Auto) 11.3H, Lymphocytes # (Auto) 0.6L, Monocytes # (Auto) 1.3H, Eosinophils # (Auto) 0.0, Basophils # (Auto) 0.0, Nucleated Red Blood Cells % (auto) 0.0, Prothrombin Time 29.3H, Prothromb Time International Ratio 2.79, Activated Partial Thromboplast Time 41.1H, Anion Gap 6L, Glomerular Filtration Rate 47.2, Calcium Level 8.5L, Total Bilirubin 2.3H, Direct Bilirubin 0.5H, Aspartate Amino Transf (AST/SGOT) 21, Alanine Aminotransferase (ALT/SGPT) 21, Alkaline Phosphatase 87, Total Protein 7.2, Albumin 3.5, Albumin/Globulin Ratio 0.9, Lipase 67L 08/14/19 14:53: CBC/BMP Laboratory Tests 08/14/19 10:59 Microbiology Microbiology 08/14/19 Urine Culture, Received Pending Home Medications Scheduled Acetaminophen (Acetaminophen) 500 Mg Tablet, 750 MG PO QHS Budesonide/Formoterol (Symbicort 160-4.5 Mcg Inhaler) 6 Gm Hfa.aer.ad, 2 PUFF INH BID Carvedilol (Carvedilol) 6.25 Mg Tablet, 6.25 MG PO BID Clopidogrel Bisulfate (Plavix) 75 Mg Tablet, 75 MG PO DAILY Cyclosporine (Restasis) 0.05% Droperette, 1 DROP OU BID Dofetilide (Tikosyn) 250 Mcg Capsule, 250 MCG PO BID Famotidine (Famotidine) 40 Mg Tablet, 40 MG PO QHS Folic Acid (Folic Acid) 1 Mg Tablet, 1 MG PO DAILY Levothyroxine Sodium (Levothyroxine Sodium) 112 Mcg Tablet, 112 MCG PO QAM Metformin HCl (Metformin HCl ER) 750 Mg Tab.er.24h, 750 MG PO QPM DINNERTIME [place]-3 Fatty Acids/Fish Oil (Fish Oil 1,000 mg Capsule) 1 Each Capsule, 1,000 MG PO DAILY Pantoprazole Sodium (Pantoprazole Sodium) 40 Mg Tablet.dr, 40 MG PO BID Paroxetine HCl (Paroxetine HCl) 20 Mg Tablet, 20 MG PO DAILY Polyvinyl Alcohol (Artificial Tears) 15 Ml Drops, 1 DROP OU QID Rosuvastatin Calcium (Rosuvastatin Calcium) 20 Mg Tablet, 20 MG PO QHS Sennosides (Senna Lax) 8.6 Mg Tablet, 8.6 MG PO QHS Sulfamethoxazole/Trimethoprim (Bactrim 400-80 mg Tablet) 1 Each Tablet, 1 TAB PO BID Tiotropium [place] (Spiriva Respimat) 4 Gm Mist.inhal, 2 PUFFS INH DAILY Torsemide (Torsemide) 20 Mg Tablet, 20 MG PO DAILY Warfarin Sodium (Warfarin Sodium) 2.5 Mg Tablet, 2.5 MG PO QPM TAKES WITH 5MG FOR TOTAL 7.5MG EVERY EVENING. PT WAS TOLD TO TAKE 10MG ON 08/14/19 THEN RESUME 7.5MG Warfarin Sodium (Warfarin Sodium) 5 Mg Tablet, 5 MG PO QPM TAKES WITH 2.5MG FOR TOTAL 7.5MG EVERY EVENING. PT WAS TOLD TO TAKE 10MG ON 08/14/19 THEN RESUME 7.5MG Scheduled PRN Tramadol HCl (Tramadol HCl) 50 Mg Tablet, 50 MG PO BIDP PRN for pain Allergies Coded Allergies: SEASONAL ALLERGIES (Verified Allergy, Unknown, 08/14/19) metoclopramide (Verified Adverse Reaction, Unknown, DEPRESSION, 08/14/19) A-FIB/CHADSVASC A-FIB History Current/History of A-Fib/PAF?: Yes Current PO Anticoag Therapy: Yes Treatment Treatment ordered: Warfarin GME ATTESTATION GME ATTESTATION My faculty preceptor for this patient encounter was physically present during the encounter and was fully available. All aspects of the patient interview, examination, medical decision making process, and medical care plan development were reviewed and approved by the faculty preceptor. The faculty preceptor is aware and concurs with the plan as stated in the body of this note and will attest to such by his/her cosignature. ABDI PARKER MD August 14, 2019 16:28 ALTHEA CROWDER MD Aug 22, 2019 20:17
[2019-08-14] MEDS ORDERED: GLUCOSE 4GM CHEW TABLET PO PRN (16:45)
[2019-08-14] MEDS ORDERED: GLUCAGON INJ 1MG VIAL SC PRN (16:45)
[2019-08-14] MEDS ORDERED: DEXTROSE 50% 50 ML SYRINGE IV PRN (16:45)
[2019-08-14 16:53] VITALS: BP 122/69
[2019-08-14] MEDS ORDERED: WARFARIN SOD 5 MG TAB PO ONE (17:00)
[2019-08-14] MEDS ORDERED: WARFARIN SOD 7.5 MG TAB PO SCH (17:00)
[2019-08-14] MEDS ORDERED: POTASSIUM CHLORIDE 10 MEQ SR TABLET PO ONE (17:00)
[2019-08-14] MEDS ORDERED: WARFARIN SOD 2 MG TAB PO ONE (17:00)
[2019-08-14 18:00] VITALS: BP 117/68
[2019-08-14] MEDS: DOFETILIDE 250 MCG PO SCH (18:39)
[2019-08-14] MEDS: HumaLOG INSULIN (NovoLOG) PER UNIT SC SCH ×2 (18:40→20:36)
[2019-08-14] MEDS: SYMBICORT 160/4.5MCG INHALER 6GM INH SCH (19:49)
[2019-08-14] MEDS: POLYVINYL ALCOHOL OPHTH SOLN 15 ML(LIQUITEARS) OU SCH (20:32)
[2019-08-14] MEDS: PANTOPRAZOLE 40MG TAB (PROTONIX) PO SCH (20:32)
[2019-08-14] MEDS: FAMOTIDINE 20 MG TAB PO SCH (20:32)
[2019-08-14] MEDS: ROSUVASTATIN 10 MG TAB (CRESTOR) PO SCH (20:33)
[2019-08-14] MEDS: CARVedilol 6.25 MG TAB PO SCH (20:35)
[2019-08-14] MEDS: SENNA 8.6 MG TAB (SENOKOT) PO SCH ×2 (20:36→20:38)
[2019-08-14] MEDS: ACETAMINOPHEN TAB 650MG DOSE (2X325MG) PO PRN (20:43)
[2019-08-14] MEDS ORDERED: WARFARIN SOD 2.5 MG TAB PO SCH (21:00)
[2019-08-14 21:20] VITALS: BP 109/66
--- NOTE | 2019-08-14 21:30 | REPVR ---
PROCEDURE INFORMATION: Exam: US Retroperitoneal Limited, Kidneys Exam date and time: 08/14/2019 9:13 PM Age: 78 years old Clinical indication: Other: Miguel Angel; Additional info: Miguel Angel + dysuria, R/O pyelo TECHNIQUE: Imaging protocol: Real-time ultrasound of the retroperitoneum with image documentation. Examination was focused on the kidneys. COMPARISON: GALLBLADDER US 08/14/2019 12:05 PM FINDINGS: Right kidney: Right kidney measures up to 12.3 cm in length. Right kidney appears within normal limits without hydronephrosis. Left kidney: Left kidney measures up to 12.8 centimetres in length. Left kidney appears within normal limits without hydronephrosis. Bladder: No focal abnormality involving the urinary bladder. IMPRESSION: Unremarkable renal ultrasound. Electronically signed by: Isac Yo On 08/14/2019 21:30:14 PM
[2019-08-15] VITALS: BP 112/67
[2019-08-15 04:00] VITALS: BP 100/62
[2019-08-15] MEDS: LEVOTHYROXINE 112MCG TABLET (0.112MG) PO SCH (06:14)
[2019-08-15] MEDS: DOFETILIDE 250 MCG PO SCH ×2 (06:14→17:16)
[2019-08-15 06:49] LABS: HEMATOCRIT 38.2 % (42.0-52.0); HEMOGLOBIN 12.3 g/dl (13.5-17.5); MEAN CORPUSCULAR HEMOGLOBIN 28.1 pg (27.0-33.0); MEAN CORPUSCULAR HGB CONC 32.2 g/dl (32.0-36.5); MEAN CORPUSCULAR VOLUME 87.4 fl (80.0-96.0); PLATELET COUNT, AUTOMATED 122 10^3/uL (150-450); RED BLOOD COUNT 4.37 10^6/uL (4.30-6.10); WHITE BLOOD COUNT 12.4 10^3/uL (4.0-10.0)
[2019-08-15 07:04] LABS: INR 2.91; PROTHROMBIN TIME 30.3 SECONDS (11.8-14.0)
[2019-08-15 07:08] LABS: BLOOD UREA NITROGEN 23 MG/DL (7-18); CARBON DIOXIDE LEVEL 27 MEQ/L (21-32); CHLORIDE LEVEL 106 MEQ/L (98-107); CREATININE FOR GFR 1.17 MG/DL (0.70-1.30); GLOMERULAR FILTRATION RATE > 60.0 (>42); GLUCOSE, FASTING 135 MG/DL (70-100); MAGNESIUM LEVEL 1.9 MG/DL (1.8-2.4); POTASSIUM SERUM 3.7 MEQ/L (3.5-5.1); SODIUM LEVEL 141 MEQ/L (136-145)
[2019-08-15] MEDS: TIOTROPIUM INHALER/CAPSULE (SPIRIVA) INH SCH (07:41)
[2019-08-15] MEDS: SYMBICORT 160/4.5MCG INHALER 6GM INH SCH ×2 (07:44→18:08)
[2019-08-15 08:00] VITALS: BP 109/68
[2019-08-15] MEDS: ACETAMINOPHEN TAB 650MG DOSE (2X325MG) PO PRN (08:20)
[2019-08-15] MEDS: HumaLOG INSULIN (NovoLOG) PER UNIT SC SCH ×4 (08:20→20:54)
[2019-08-15] MEDS: PANTOPRAZOLE 40MG TAB (PROTONIX) PO SCH ×2 (08:21→20:55)
[2019-08-15] MEDS: CARVedilol 6.25 MG TAB PO SCH ×2 (08:21→20:55)
[2019-08-15] MEDS: CLOPIDOGREL 75 MG TAB PO SCH (08:21)
[2019-08-15] MEDS: POLYVINYL ALCOHOL OPHTH SOLN 15 ML(LIQUITEARS) OU SCH ×4 (08:21→20:57)
[2019-08-15] MEDS ORDERED: PARoxetine 20 MG TAB PO SCH (09:00)
[2019-08-15] MEDS ORDERED: FOLIC ACID 1 MG TAB PO SCH (09:00)
[2019-08-15] MEDS ORDERED: TORSEMIDE 20 MG TAB PO SCH (09:00)
[2019-08-15] MEDS: traMADol 50 MG TAB PO PRN ×2 (09:25→20:56)
[2019-08-15 12:00] VITALS: BP 124/74
[2019-08-15] MEDS ORDERED: cefTRIAXone SOD 1 GM in D5W MINI-BAG PLUS 50 ML IV SCH (15:00)
[2019-08-15] MEDS ORDERED: WARFARIN SOD 5 MG TAB PO ONE (17:00)
--- NOTE | 2019-08-15 17:30 | IPNPDOC ---
Date Seen The patient was seen on 08/15/19. Progress Note SUBJECTIVE: The patient was seen and examined at the bedside this morning. He states he is still having lower abdominal/suprapubic pain but no longer having burning/dysuria-like symptoms. He did not have any fevers overnight. He feels somewhat tired/lethargic this morning but he attributes that to not having slept well. OBJECTIVE PHYSICAL EXAMINATION: VITAL SIGNS: Please see below. GENERAL APPEARANCE: Laying in bed, appears stated age, no acute distress, calm, cooperative HEENT: EOMI, PERRLA, neck is supple with no thyromegaly or lymphadenopathy RESPIRATORY: Lungs are clear to auscultation bilaterally with no adventitious breath sounds appreciated CARDIOVASCULAR: no JVD, irregularly irregular, artificial aortic valve can be auscultated, no obvious murmurs/rubs/gallops ABDOMEN: +BS, soft, slight tenderness to deep palpation of lower abdomen, no masses/organomegaly EXTREMITIES: no clubbing, cyanosis or edema noted NEUROLOGICAL: CN 2-12 intact, No obvious focal deficits PSYCHIATRIC: normal mood/affect Skin: very galvez skin, darkened skin in upper extremities LN: No significant cervical or inguinal lymphadenopathy LABORATORY DATA: See below. IMAGING: GALLBLADDER US: Multiple ultrasonographic images of the hepatic parenchyma echo pattern show normal appearing echoes throughout without evidence of a mass or ductal dilatation. The common bile duct measures between 6-7 mm. The gallbladder is within normal limits. There is no pericholecystic edema or gallbladder thickening. There are no choleliths. The imaged portion of the pancreas and right kidney are within normal limits for the patient's age. There is no free fluid. IMPRESSION: Unremarkable right upper quadrant ultrasound. MICROBIOLOGY: Please see below. ASSESSMENT: This is a 78 YO M with history of AF, CAD, hx obstructive uropathy who presents with 48 h fevers, chills, dysuria and crampy lower abdominal pain found to have fever, leukocytosis, elevated bilirubin and acute kidney injury on CKD 3. . PLAN: 1. Acute complicated UTI: Patient has fever, leukocytosis, dysuria symptoms -UA demonstrates 2+ blood (patient is on Coumadin), 2+ LE, 71 WBC concerning for UTI -Urine culture pending -Empiric Rocephin with plan to de-escalate pending culture -Tramadol for lower abdominal/suprapubic pain 2. NATHALIE on CKD 3: Cr found to be 1.53 -Will hold Torsemide, Metformin -Renal US ordered 3. Hyperbilirubinemia: patient does not have RUQ pain. Possibly 2/2 medication side effect -Gallbladder US WNL -Will recheck in AM 4. Aortic valve replacement: -INR goal 3.0-3.5. Current INR 2.9. Will need extra dose of 2.5mg tonight -Will resume normal Coumadin dose tomorrow -Continue Plavix 5. Atrial fibrillation: -On Coumadin -Patient will take home Tikosyn, as this medication not on our formulary -Continue Coreg 6. GERD: -Continue Famotidine, Protonix 7. DM2: last known A1c 8.1% -SSI with hypoglycemic protocol -Holding Metformin while inpatient DVT ppx: on Coumadin DISPO: pending urine culture Attending attestation: I evaluated and examined the patient in person; I discussed the care with Resident in detail and agree with the plan above. VS, I&O, 24H, Fishbone Vital Signs/I&O Vital Signs Date Time Temp Pulse Resp B/P (MAP) Pulse Ox O2 Delivery O2 Flow Rate FiO2 08/15/19 12:00 97.7 70 16 124/74 (91) 97 Room Air I&O- Last 24 Hours up to 6 AM 08/15/19 06:00 Intake Total 350 ml Output Total 425 ml Balance -75 ml Laboratory Data 24H LABS Laboratory Tests 2 08/14/19 20:33: Bedside Glucose (Misc Panel) 232H 08/15/19 06:17: Nucleated Red Blood Cells % (auto) 0.0, Prothrombin Time 30.3H, Prothromb Time International Ratio 2.91, Anion Gap 8, Glomerular Filtration Rate > 60.0, Calcium Level 8.0L, Magnesium Level 1.9 08/15/19 11:39: Bedside Glucose (Misc Panel) 151H 08/15/19 16:36: Bedside Glucose (Misc Panel) 139H CBC/BMP Laboratory Tests 08/15/19 06:17 Microbiology Microbiology 08/14/19 Coronavirus COVID-19 PCR ([id number]), Received Pending 08/14/19 Blood Culture, Received Pending 08/14/19 Blood Culture, Received Pending 08/14/19 Urine Culture, Received Pending GME ATTESTATION GME ATTESTATION My faculty preceptor for this patient encounter was physically present during the encounter and was fully available. All aspects of the patient interview, examination, medical decision making process, and medical care plan development were reviewed and approved by the faculty preceptor. The faculty preceptor is aware and concurs with the plan as stated in the body of this note and will attest to such by his/her cosignature. ABDI PARKER MD August 15, 2019 17:30 ALTHEA CROWDER MD Aug 22, 2019 20:29
[2019-08-15] MEDS: ROSUVASTATIN 10 MG TAB (CRESTOR) PO SCH (20:55)
[2019-08-15] MEDS: FAMOTIDINE 20 MG TAB PO SCH (20:55)
[2019-08-15] MEDS: SENNA 8.6 MG TAB (SENOKOT) PO SCH (20:55)
[2019-08-15 21:00] VITALS: BP 134/74
[2019-08-15] MEDS ORDERED: RAMELTEON 8 MG TAB (ROZEREM) PO PRN (23:00)
[2019-08-16] VITALS: BP 107/62
[2019-08-16 06:00] VITALS: BP 106/58
[2019-08-16 06:07] LABS: HEMATOCRIT 36.7 % (42.0-52.0); HEMOGLOBIN 11.9 g/dl (13.5-17.5); MEAN CORPUSCULAR HEMOGLOBIN 28.5 pg (27.0-33.0); MEAN CORPUSCULAR HGB CONC 32.4 g/dl (32.0-36.5); MEAN CORPUSCULAR VOLUME 87.8 fl (80.0-96.0); PLATELET COUNT, AUTOMATED 125 10^3/uL (150-450); RED BLOOD COUNT 4.18 10^6/uL (4.30-6.10); WHITE BLOOD COUNT 8.1 10^3/uL (4.0-10.0)
[2019-08-16] MEDS: LEVOTHYROXINE 112MCG TABLET (0.112MG) PO SCH (06:19)
[2019-08-16] MEDS: DOFETILIDE 250 MCG PO SCH (06:20)
[2019-08-16 06:23] LABS: INR 2.92; PROTHROMBIN TIME 30.4 SECONDS (11.8-14.0)
[2019-08-16 06:37] LABS: BLOOD UREA NITROGEN 21 MG/DL (7-18); CALCIUM LEVEL 7.8 MG/DL (8.8-10.2); CARBON DIOXIDE LEVEL 27 MEQ/L (21-32); CHLORIDE LEVEL 103 MEQ/L (98-107); CREATININE FOR GFR 1.14 MG/DL (0.70-1.30); GLOMERULAR FILTRATION RATE > 60.0 (>42); GLUCOSE, FASTING 123 MG/DL (70-100); POTASSIUM SERUM 3.7 MEQ/L (3.5-5.1); SODIUM LEVEL 136 MEQ/L (136-145)
[2019-08-16] MEDS: TIOTROPIUM INHALER/CAPSULE (SPIRIVA) INH SCH (07:21)
[2019-08-16] MEDS: SYMBICORT 160/4.5MCG INHALER 6GM INH SCH (07:25)
[2019-08-16 08:00] VITALS: BP 133/79
[2019-08-16 08:39] VITALS: BP 106/58
[2019-08-16] MEDS: PANTOPRAZOLE 40MG TAB (PROTONIX) PO SCH (08:39)
[2019-08-16] MEDS: HumaLOG INSULIN (NovoLOG) PER UNIT SC SCH (08:39)
[2019-08-16] MEDS: CARVedilol 6.25 MG TAB PO SCH (08:39)
[2019-08-16] MEDS: POLYVINYL ALCOHOL OPHTH SOLN 15 ML(LIQUITEARS) OU SCH (08:39)
[2019-08-16] MEDS: CLOPIDOGREL 75 MG TAB PO SCH (08:39)
[2019-08-16] MEDS ORDERED: SENOKOT S TAB PO ONE (10:45)
[2019-08-16] MEDS ORDERED: BACT400T PO (10:47)
[2019-08-16] MEDS ORDERED: TRAM50TA2 PO (11:05)
--- NOTE | 2019-08-16 15:43 | DS.PDOC ---
Discharge Summary General Date of Admission August 14, 2019 at 09:58 Date of Discharge August 16, 2019 Primary Care Physician: Ajay Ceballos Attending Physician: ALTHEA CROWDER MD Discharge Summary PROCEDURES PERFORMED DURING STAY: [None]. ADMITTING DIAGNOSES: 1. Acute complicated UTI DISCHARGE DIAGNOSES: 1. Acute complicated UTI COMPLICATIONS/CHIEF COMPLAINT: AFIB. HISTORY OF PRESENT ILLNESS: Kareem Prado is a 78 YO M with history of atrial fibrillation, history of aortic valve replacement who presents with 48hours fevers, chills, crampy lower abdominal pain and dysuria symptoms. He states that he has felt that is urination has been "different"--not necessarily burning but a feeling of fullness and pressure when he urinates. He denies any back pain or flank pain. He has never had a UTI before. He has not had any urinary retention or difficulty urinating--he states that he has been running to the bathroom frequently and has been drinking a lot of fluids. He does report that his was ill with flu-like symptoms one day prior to his symptoms having started. He did also recently travel to [place] for an echocardiogram. However, he has not had any respiratory symptoms--no cough, shortness of breath worse than his baseline, nor any fatigue/malaise. HOSPITAL COURSE: The patient was admitted as he was found to have possible UTI. He was started on empiric Rocephin. As his creatinine was found to be mildly elevated all potentially nephrotoxic medications including metformin and torsemide were held. His bilirubin was found to be elevated. A right upper quadrant ultrasound was performed and was found to be negative for any abnormality. In addition, his INR was found to be 2.5, therefore he received an extra dose of 2.5mg Coumadin on hospital days one and 2. His urine was found to grow Enterobacter Aerogenes. On hospital day 3, he denied any dysuria symptoms. He did report that he still had some lower abdominal crampy pain, but this was resolving. He also reported small "pellets" in his urine which were nonvisualized on his initial UA. He was told to follow-up with his primary care physician in the outpatient setting. He was discharged home on 5 days oral Bactrim to complete the course of treatment for his UTI. DISCHARGE MEDICATIONS: Please see below. ALLERGIES: Please see below. PHYSICAL EXAMINATION ON DISCHARGE: VITAL SIGNS: Please see below. GENERAL APPEARANCE: Laying in bed, appears stated age, no acute distress, calm, cooperative HEENT: EOMI, PERRLA, neck is supple with no thyromegaly or lymphadenopathy RESPIRATORY: Lungs are clear to auscultation bilaterally with no adventitious breath sounds appreciated CARDIOVASCULAR: no JVD, irregularly irregular, artificial aortic valve can be auscultated, no obvious murmurs/rubs/gallops ABDOMEN: +BS, soft, slight tenderness to deep palpation of lower abdomen, no ma sses/organomegaly EXTREMITIES: no clubbing, cyanosis or edema noted NEUROLOGICAL: CN 2-12 intact, No obvious focal deficits PSYCHIATRIC: normal mood/affect Skin: very galvez skin, darkened skin in upper extremities LN: No significant cervical or inguinal lymphadenopathy LABORATORY DATA: Please see below. IMAGING: GALLBLADDER US: Multiple ultrasonographic images of the hepatic parenchyma echo pattern show normal appearing echoes throughout without evidence of a mass or ductal dilatation. The common bile duct measures between 6-7 mm. The gallbladder is within normal limits. There is no pericholecystic edema or gallbladder thickening. There are no choleliths. The imaged portion of the pancreas and right kidney are within normal limits for the patient's age. There is no free fluid. IMPRESSION: Unremarkable right upper quadrant ultrasound. RENAL US: FINDINGS: Right kidney: Right kidney measures up to 12.3 cm in length. Right kidney appears within normal limits without hydronephrosis. Left kidney: Left kidney measures up to 12.8 centimetres in length. Left kidney appears within normal limits without hydronephrosis. Bladder: No focal abnormality involving the urinary bladder. IMPRESSION: Unremarkable renal ultrasound. PROGNOSIS: Fair ACTIVITY: [As tolerated]. DIET: Consistent carbohydrate DISCHARGE PLAN: Home DISPOSITION: . DISCHARGE INSTRUCTIONS: 1. Follow-up with PCP within 7 days ITEMS TO FOLLOWUP ON ON OUTPATIENT: 1. None DISCHARGE CONDITION: [Stable]. TIME SPENT ON DISCHARGE: Greater than 35 minutes. Attending attestation: I evaluated and examined the patient in person; I discussed the care with Resident in detail and agree with the plan above. Vital Signs/I&Os Vital Signs Date Time Temp Pulse Resp B/P (MAP) Pulse Ox O2 Delivery O2 Flow Rate FiO2 08/16/19 08:39 68 106/58 08/16/19 08:00 97.8 20 96 Room Air I&O- Last 24 Hours up to 6 AM 08/16/19 06:00 Intake Total 1970 ml Output Total 800 ml Balance 1170 ml Laboratory Data Labs 24H Laboratory Tests 2 08/15/19 16:36: Bedside Glucose (Misc Panel) 139H 08/15/19 20:49: Bedside Glucose (Misc Panel) 156H 08/16/19 05:48: Nucleated Red Blood Cells % (auto) 0.0, Prothrombin Time 30.4H, Prothromb Time I nternational Ratio 2.92, Anion Gap 6L, Glomerular Filtration Rate > 60.0, Calcium Level 7.8L CBC/BMP Laboratory Tests 08/16/19 05:48 FSBS Laboratory Tests Test 08/15/19 16:36 08/15/19 20:49 Range/Units Bedside Glucose (Misc Panel) 139 156 83-110 MG/DL Microbiology Microbiology 08/14/19 Coronavirus COVID-19 PCR ([facility]AAKOV), Received Pending 08/14/19 Blood Culture - Preliminary, Resulted No growth after 24 hours . All specim... 08/14/19 Blood Culture - Preliminary, Resulted No growth after 24 hours . All specim... 08/14/19 Urine Culture - Final, Complete Enterobacter Aerogenes Discharge Medications Scheduled Acetaminophen (Acetaminophen) 500 Mg Tablet, 750 MG PO QHS, (Reported) Budesonide/Formoterol (Symbicort 160-4.5 Mcg Inhaler) 6 Gm Hfa.aer.ad, 2 PUFF INH BID, (Reported) Carvedilol (Carvedilol) 6.25 Mg Tablet, 6.25 MG PO BID, (Reported) Clopidogrel Bisulfate (Plavix) 75 Mg Tablet, 75 MG PO DAILY, (Reported) Cyclosporine (Restasis) 0.05% Droperette, 1 DROP OU BID, (Reported) Dofetilide (Tikosyn) 250 Mcg Capsule, 250 MCG PO BID, (Reported) Famotidine (Famotidine) 40 Mg Tablet, 40 MG PO QHS, (Reported) Folic Acid (Folic Acid) 1 Mg Tablet, 1 MG PO DAILY, (Reported) Levothyroxine Sodium (Levothyroxine Sodium) 112 Mcg Tablet, 112 MCG PO QAM, (Reported) Metformin HCl (Metformin HCl ER) 750 Mg Tab.er.24h, 750 MG PO QPM, (Reported) DINNERTIME [place]-3 Fatty Acids/Fish Oil (Fish Oil 1,000 mg Capsule) 1 Each Capsule, 1,000 MG PO DAILY, (Reported) Pantoprazole Sodium (Pantoprazole Sodium) 40 Mg Tablet.dr, 40 MG PO BID, (Reported) Paroxetine HCl (Paroxetine HCl) 20 Mg Tablet, 20 MG PO DAILY, (Reported) Polyvinyl Alcohol (Artificial Tears) 15 Ml Drops, 1 DROP OU QID, (Reported) Rosuvastatin Calcium (Rosuvastatin Calcium) 20 Mg Tablet, 20 MG PO QHS, (Reported) Sennosides (Senna Lax) 8.6 Mg Tablet, 8.6 MG PO QHS, (Reported) Sulfamethoxazole/Trimethoprim (Bactrim 400-80 mg Tablet) 1 Each Tablet, 1 TAB PO BID Tiotropium [place] (Spiriva Respimat) 4 Gm Mist.inhal, 2 PUFFS INH DAILY, (Rep orted) Torsemide (Torsemide) 20 Mg Tablet, 20 MG PO DAILY, (Reported) Warfarin Sodium (Warfarin Sodium) 2.5 Mg Tablet, 2.5 MG PO QPM, (Reported) TAKES WITH 5MG FOR TOTAL 7.5MG EVERY EVENING. PT WAS TOLD TO TAKE 10MG ON 08/14/19 THEN RESUME 7.5MG Warfarin Sodium (Warfarin Sodium) 5 Mg Tablet, 5 MG PO QPM, (Reported) TAKES WITH 2.5MG FOR TOTAL 7.5MG EVERY EVENING. PT WAS TOLD TO TAKE 10MG ON 08/14/19 THEN RESUME 7.5MG Scheduled PRN Tramadol HCl (Tramadol HCl) 50 Mg Tablet, 50 MG PO BIDP PRN for pain Allergies Coded Allergies: SEASONAL ALLERGIES (Verified Allergy, Unknown, 08/14/19) metoclopramide (Verified Adverse Reaction, Unknown, DEPRESSION, 08/14/19) GME ATTESTATION GME ATTESTATION My faculty preceptor for this patient encounter was physically present during the encounter and was fully available. All aspects of the patient interview, examination, medical decision making process, and medical care plan development were reviewed and approved by the faculty preceptor. The faculty preceptor is aware and concurs with the plan as stated in the body of this note and will at test to such by his/her cosignature. ABDI PARKER MD August 16, 2019 15:43 ALTHEA CROWDER MD Aug 22, 2019 20:43
== END 2019-08-16 11:36 | disposition home or self-care (01) ==
LOC: M ED 09:57 → M ED INP 09:58 → ENRESERV 16:48 → M MSPAV 16:52 → M 4MAIN 21:25
PROVIDERS: ADMIT Internal Medicine; ATTEND Internal Medicine
DX: N39.0 Urinary tract infection, site not specified (principal); B96.89 Other specified bacterial agents as the cause of diseases classified elsewhere; E11.9 Type 2 diabetes mellitus without complications; I48.91 Unspecified atrial fibrillation; N18.3 Chronic kidney disease, stage 3 (moderate); J30.9 Allergic rhinitis, unspecified; D72.829 Elevated white blood cell count, unspecified; D50.9 Iron deficiency anemia, unspecified; J44.9 Chronic obstructive pulmonary disease, unspecified; K21.9 Gastro-esophageal reflux disease without esophagitis; I25.10 Atherosclerotic heart disease of native coronary artery without angina pectoris; K57.90 Diverticulosis of intestine, part unspecified, without perforation or abscess without bleeding; E78.00 Pure hypercholesterolemia, unspecified; R06.09 Other forms of dyspnea; M48.061 Spinal stenosis, lumbar region without neurogenic claudication; Z95.2 Presence of prosthetic heart valve; Z95.0 Presence of cardiac pacemaker; Z95.810 Presence of automatic (implantable) cardiac defibrillator; Z87.891 Personal history of nicotine dependence; Z79.01 Long term (current) use of anticoagulants; Z79.02 Long term (current) use of antithrombotics/antiplatelets; Z79.84 Long term (current) use of oral hypoglycemic drugs; Z79.899 Other long term (current) drug therapy; Z88.8 Allergy status to other drugs, medicaments and biological substances
CPT/HCPCS: 36415; 76705; 76775; 80048; 80076; 81001; 83605; 83690; 83735; 85025; 85027; 85610; 85730; 87040; 87088; 87186; 87641; 94640; 96365; 96366; 99284; G0378; J0696; U0003

== ENCOUNTER → 2019-09-27 | Outpatient (CLI) | payer MEDICARE, BC ==
[~2019-09-27] MED LIST changes: +ACET500T15 PO; -ASPI81TA85 PO; +ASPI81TA86 PO; +BACT400T PO; +BUDE10.2; +CARV6.25 PO; -COUM7.5T PO; +COUM7.5T6 PO; +FAMO40TA3 PO; +FISH1000 PO; +FOLI1TAB11; +FOLI1TAB11 PO; +LEVO112T2 PO; +METF750T36; +METF750T36 PO; +PANT40TA29; +PANT40TA29 PO; +PARO20TA3; +PARO20TA3 PO; +RA S8.6T3 PO; +ROSU20TA5; +ROSU20TA5 PO; +SPIR12.9; +SPIR12.9 INH; +SYMB16INH INH; +TIKO250C PO; +TORS20TA2; +TORS20TA2 PO; +TRAM50TA2 PO; +WARF-18 PO; +WARF-23 PO
[2019-09-27 08:17] LABS: HEMOGLOBIN 13.2 g/dl (13.5-17.5); MEAN CORPUSCULAR HEMOGLOBIN 28.5 pg (27.0-33.0); MEAN CORPUSCULAR HGB CONC 31.4 g/dl (32.0-36.5); MEAN CORPUSCULAR VOLUME 90.7 fl (80.0-96.0); PLATELET COUNT, AUTOMATED 163 10^3/uL (150-450); RED BLOOD COUNT 4.63 10^6/uL (4.30-6.10); WHITE BLOOD COUNT 8.2 10^3/uL (4.0-10.0)
[2019-09-27 08:36] LABS: INR 2.98; PROTHROMBIN TIME 30.9 SECONDS (11.8-14.0)
[2019-09-27 08:39] LABS: CALCIUM LEVEL 9.3 MG/DL (8.8-10.2); CREATININE FOR GFR 1.35 MG/DL (0.70-1.30); GLOMERULAR FILTRATION RATE 54.6 (>42); POTASSIUM SERUM 4.3 MEQ/L (3.5-5.1)
== END ==
LOC: M LAB 07:27
PROVIDERS: ATTEND Internal Medicine Cardiovascular Disease
DX: Z01.818 Encounter for other preprocedural examination (principal); I48.91 Unspecified atrial fibrillation

== ENCOUNTER → 2019-11-02 | Outpatient (CLI) | payer MEDICARE, BC ==
[2019-12-30 23:32] LABS: ALBUMIN 3.9 GM/DL (3.2-5.2); BILIRUBIN,TOTAL 0.7 MG/DL (0.2-1.0); CALCIUM LEVEL 8.9 MG/DL (8.8-10.2); CREATININE FOR GFR 1.37 MG/DL (0.70-1.30); GLOMERULAR FILTRATION RATE 53.5 (>42); HEMOGLOBIN A1c 7.2 %; POTASSIUM SERUM 4.1 MEQ/L (3.5-5.1); TOTAL PROTEIN 7.4 GM/DL (6.4-8.2)
== END ==
LOC: M LAB 07:06
PROVIDERS: ATTEND Internal Medicine
DX: I12.9 Hypertensive chronic kidney disease with stage 1 through stage 4 chronic kidney disease, or unspecified chronic kidney disease (principal); E11.9 Type 2 diabetes mellitus without complications

== ENCOUNTER → 2019-11-06 | Outpatient (REF) | payer MEDICARE, BC | LOC: M SFHCPLAZ 10:27 | PROVIDERS: ATTEND Internal Medicine | DX: E11.9 Type 2 diabetes mellitus without complications (principal); I12.9 Hypertensive chronic kidney disease with stage 1 through stage 4 chronic kidney disease, or unspecified chronic kidney disease ==

== ENCOUNTER → 2019-11-29 | Outpatient (CLI) | payer MEDICARE, BC ==
--- NOTE | 2019-12-14 10:40 | REPPI ---
CHEST X-RAY: 11/29/19 CLINICAL: Follow-up abnormal findings. COMPARISON: Chest CT 01/09/19. TECHNIQUE: PA and lateral. FINDINGS: Mediastinum demonstrates cardiomegaly with pacemaker and aortic valve repair. The lung izaguirre demonstrate chronic intersitial changes without acute consolidation, effusion or pneumothorax. Previously noted reticular nodular infiltrate appears to have resolved. Chronic elevation of the left hemidiaphragm is again noted. Skeletal structures are intact. IMPRESSION: 1. Cardiomegaly and chronic findings. 2. No acute process appreciated. MTDD
== END ==
LOC: M PLAIMG 11:57
PROVIDERS: ATTEND Internal Medicine
DX: R91.8 Other nonspecific abnormal finding of lung field (principal); I51.7 Cardiomegaly; Z95.0 Presence of cardiac pacemaker

== ENCOUNTER → 2020-01-22 | Outpatient (CLI) | payer MEDICARE, BC ==
[2020-01-22 17:18] LABS: ALBUMIN 3.8 GM/DL (3.2-5.2); BILIRUBIN,DIRECT 0.3 MG/DL (0.0-0.2); BILIRUBIN,TOTAL 0.7 MG/DL (0.2-1.0); THYROID STIMULATING HORMONE 2.34 uIU/ML (0.358-3.740); TOTAL PROTEIN 7.2 GM/DL (6.4-8.2)
== END ==
LOC: M WUC 10:56
DX: I47.2 Ventricular tachycardia (principal); I48.0 Paroxysmal atrial fibrillation; I48.92 Unspecified atrial flutter; Z79.899 Other long term (current) drug therapy

== ENCOUNTER → 2020-01-29 | Outpatient (CLI) | payer MEDICARE, BC ==
[2020-01-29 18:21] LABS: CALCIUM LEVEL 9.2 MG/DL (8.8-10.2); CREATININE FOR GFR 1.69 MG/DL (0.70-1.30); POTASSIUM SERUM 3.9 MEQ/L (3.5-5.1)
== END ==
LOC: M PLALAB 14:55
PROVIDERS: ATTEND Internal Medicine Cardiovascular Disease
DX: I48.0 Paroxysmal atrial fibrillation (principal)

== ENCOUNTER → 2020-04-15 | Outpatient (CLI) | payer MEDICARE, BC ==
[2020-04-15 14:39] LABS: CALCIUM LEVEL 9.5 MG/DL (8.8-10.2); CREATININE FOR GFR 1.43 MG/DL (0.70-1.30); GLOMERULAR FILTRATION RATE 50.9 (>42); POTASSIUM SERUM 4.2 MEQ/L (3.5-5.1)
[2020-04-15 14:44] LABS: CALCIUM LEVEL 9.2 MG/DL (8.8-10.2); CREATININE FOR GFR 1.42 MG/DL (0.70-1.30); GLOMERULAR FILTRATION RATE 51.3 (>42); POTASSIUM SERUM 4.2 MEQ/L (3.5-5.1); PTH INTACT 63.3 PG/ML (18.5-88.0)
[2020-04-15 14:45] LABS: ALBUMIN 3.8 GM/DL (3.2-5.2); BILIRUBIN,TOTAL 0.7 MG/DL (0.2-1.0); TOTAL PROTEIN 7.3 GM/DL (6.4-8.2)
[2020-04-15 15:53] LABS: HEMOGLOBIN A1c 7.5 %
== END ==
LOC: M PLALAB 09:34
PROVIDERS: ATTEND Internal Medicine
DX: E11.9 Type 2 diabetes mellitus without complications (principal); I12.9 Hypertensive chronic kidney disease with stage 1 through stage 4 chronic kidney disease, or unspecified chronic kidney disease

== ENCOUNTER → 2020-06-13 | Outpatient (CLI) | payer MEDICARE, BC ==
[2020-06-13 14:13] LABS: ALBUMIN 3.8 GM/DL (3.2-5.2); BILIRUBIN,TOTAL 0.9 MG/DL (0.2-1.0); CREATININE FOR GFR 1.67 MG/DL (0.70-1.30); GLOMERULAR FILTRATION RATE 42.6 (>42); MAGNESIUM LEVEL 1.9 MG/DL (1.8-2.4); POTASSIUM SERUM 4.2 MEQ/L (3.5-5.1); THYROID STIMULATING HORMONE 2.26 uIU/ML (0.358-3.740); TOTAL PROTEIN 7.2 GM/DL (6.4-8.2)
== END ==
LOC: M PLALAB 10:12
PROVIDERS: ATTEND Registered Nurse
DX: I47.2 Ventricular tachycardia (principal); I48.0 Paroxysmal atrial fibrillation; I48.92 Unspecified atrial flutter; Z79.899 Other long term (current) drug therapy

== ENCOUNTER → 2020-07-02 | Outpatient (CLI) | payer MEDICARE, BC | LOC: M LABSMTC 13:59 | PROVIDERS: ATTEND Internal Medicine Cardiovascular Disease | DX: Z20.828 Contact with and (suspected) exposure to other viral communicable diseases (principal); Z11.59 Encounter for screening for other viral diseases ==

== ENCOUNTER → 2020-07-09 | Outpatient (REF) | payer MEDICARE, BC ==
[2020-07-09 13:01] LABS: CALCIUM LEVEL 8.9 MG/DL (8.8-10.2); CREATININE FOR GFR 1.47 MG/DL (0.70-1.30); GLOMERULAR FILTRATION RATE 49.3 (>42); POTASSIUM SERUM 4.2 MEQ/L (3.5-5.1)
== END ==
LOC: M PLALAB 11:43
PROVIDERS: ATTEND Internal Medicine Cardiovascular Disease
DX: N28.9 Disorder of kidney and ureter, unspecified (principal)

== ENCOUNTER → 2020-08-20 | Outpatient (CLI) | payer MEDICARE, BC ==
[2020-08-20 18:02] LABS: CALCIUM LEVEL 8.7 MG/DL (8.8-10.2); CREATININE FOR GFR 1.82 MG/DL (0.70-1.30); GLOMERULAR FILTRATION RATE 38.5 (>42); PERCENT SATURATION 5.8 % (19.7-50.0)
== END ==
LOC: M PLALAB 14:56
PROVIDERS: ATTEND Internal Medicine Advanced Heart Failure and Transplant Cardiology
DX: I50.9 Heart failure, unspecified (principal)

== ENCOUNTER → 2020-10-13 | Outpatient (REF) | payer MEDICARE, BC ==
[~2020-10-13] MED LIST changes: +OMEP40CA4 PO; -OMEP40CA97 PO
[2020-10-13 18:17] LABS: HEMATOCRIT 40.7 % (42.0-52.0); HEMOGLOBIN 12.3 g/dl (13.5-17.5); MEAN CORPUSCULAR HEMOGLOBIN 24.6 pg (27.0-33.0); MEAN CORPUSCULAR HGB CONC 30.2 g/dl (32.0-36.5); MEAN CORPUSCULAR VOLUME 81.2 fl (80.0-96.0); PLATELET COUNT, AUTOMATED 210 10^3/uL (150-450); RED BLOOD COUNT 5.01 10^6/uL (4.30-6.10); WHITE BLOOD COUNT 7.3 10^3/uL (4.0-10.0)
[2020-10-13 18:52] LABS: ALBUMIN 3.9 GM/DL (3.2-5.2); BILIRUBIN,TOTAL 0.8 MG/DL (0.2-1.0); CALCIUM LEVEL 8.9 MG/DL (8.8-10.2); CREATININE FOR GFR 1.59 MG/DL (0.70-1.30); GLOMERULAR FILTRATION RATE 45.1 (>42); MAGNESIUM LEVEL 2.1 MG/DL (1.8-2.4); POTASSIUM SERUM 4.5 MEQ/L (3.5-5.1); TOTAL PROTEIN 7.7 GM/DL (6.4-8.2)
[2020-10-13 19:03] LABS: INR 2.42; PROTHROMBIN TIME 26.9 SECONDS (12.5-14.3)
== END ==
LOC: M LAB REF 17:37
PROVIDERS: ATTEND Nurse Practitioner Adult Health
DX: I42.8 Other cardiomyopathies (principal)

== ENCOUNTER → 2020-10-20 | Outpatient (REF) | payer MEDICARE, BC ==
[2020-10-20 17:09] LABS: HEMATOCRIT 40.4 % (42.0-52.0); HEMOGLOBIN 12.4 g/dl (13.5-17.5); MEAN CORPUSCULAR HEMOGLOBIN 25.4 pg (27.0-33.0); MEAN CORPUSCULAR HGB CONC 30.7 g/dl (32.0-36.5); MEAN CORPUSCULAR VOLUME 82.6 fl (80.0-96.0); PLATELET COUNT, AUTOMATED 167 10^3/uL (150-450); RED BLOOD COUNT 4.89 10^6/uL (4.30-6.10); WHITE BLOOD COUNT 6.4 10^3/uL (4.0-10.0)
[2020-10-20 17:10] LABS: ALBUMIN 3.8 GM/DL (3.2-5.2); BILIRUBIN,TOTAL 0.7 MG/DL (0.2-1.0); CALCIUM LEVEL 8.5 MG/DL (8.8-10.2); CREATININE FOR GFR 1.4 MG/DL (0.70-1.30); GLOMERULAR FILTRATION RATE 52.2 (>42); MAGNESIUM LEVEL 2.2 MG/DL (1.8-2.4); POTASSIUM SERUM 4.4 MEQ/L (3.5-5.1); TOTAL PROTEIN 7.4 GM/DL (6.4-8.2)
[2020-10-20 17:24] LABS: INR 2.77; PROTHROMBIN TIME 29.6 SECONDS (12.7-14.5)
== END ==
LOC: M LAB REF 16:12
PROVIDERS: ATTEND Nurse Practitioner Adult Health
DX: I42.8 Other cardiomyopathies (principal)

== ENCOUNTER → 2020-10-26 | Outpatient (REF) | payer MEDICARE, BC ==
[2020-10-26 14:05] LABS: HEMATOCRIT 41.5 % (42.0-52.0); HEMOGLOBIN 12.7 g/dl (13.5-17.5); MEAN CORPUSCULAR HEMOGLOBIN 25.9 pg (27.0-33.0); MEAN CORPUSCULAR HGB CONC 30.6 g/dl (32.0-36.5); MEAN CORPUSCULAR VOLUME 84.7 fl (80.0-96.0); PLATELET COUNT, AUTOMATED 167 10^3/uL (150-450); WHITE BLOOD COUNT 7.5 10^3/uL (4.0-10.0)
[2020-10-26 14:23] LABS: INR 2.96; PROTHROMBIN TIME 31.2 SECONDS (12.7-14.5)
[2020-10-26 14:35] LABS: ALBUMIN 3.7 GM/DL (3.2-5.2); BILIRUBIN,TOTAL 0.8 MG/DL (0.2-1.0); CALCIUM LEVEL 8.4 MG/DL (8.8-10.2); CREATININE FOR GFR 1.55 MG/DL (0.70-1.30); GLOMERULAR FILTRATION RATE 46.4 (>42); MAGNESIUM LEVEL 2.1 MG/DL (1.8-2.4); POTASSIUM SERUM 4.1 MEQ/L (3.5-5.1); TOTAL PROTEIN 7.1 GM/DL (6.4-8.2)
== END ==
LOC: M LAB REF 13:41
PROVIDERS: ATTEND Nurse Practitioner Adult Health
DX: I42.8 Other cardiomyopathies (principal)

== ENCOUNTER → 2020-11-03 | Outpatient (REF) | payer MEDICARE, BC ==
[2020-11-03 16:54] LABS: HEMOGLOBIN A1c 6.6 %
[2020-11-03 17:14] LABS: CHOLESTEROL RISK RATIO 2.191 (<5); THYROID STIMULATING HORMONE 2.4 uIU/ML (0.358-3.740)
== END ==
LOC: M LAB REF 15:48
PROVIDERS: ATTEND Internal Medicine
DX: E03.9 Hypothyroidism, unspecified (principal); E11.9 Type 2 diabetes mellitus without complications; E78.00 Pure hypercholesterolemia, unspecified

== ENCOUNTER → 2020-11-03 | Outpatient (REF) | payer MEDICARE, BC ==
[2020-11-03 16:38] LABS: HEMOGLOBIN 13.2 g/dl (13.5-17.5); MEAN CORPUSCULAR HEMOGLOBIN 26.5 pg (27.0-33.0); MEAN CORPUSCULAR HGB CONC 30.7 g/dl (32.0-36.5); MEAN CORPUSCULAR VOLUME 86.3 fl (80.0-96.0); PLATELET COUNT, AUTOMATED 194 10^3/uL (150-450); RED BLOOD COUNT 4.98 10^6/uL (4.30-6.10); WHITE BLOOD COUNT 7.1 10^3/uL (4.0-10.0)
[2020-11-03 16:51] LABS: INR 3.4; PROTHROMBIN TIME 34.6 SECONDS (12.7-14.5)
[2020-11-03 17:14] LABS: ALBUMIN 3.8 GM/DL (3.2-5.2); BILIRUBIN,TOTAL 0.7 MG/DL (0.2-1.0); CALCIUM LEVEL 8.6 MG/DL (8.8-10.2); CREATININE FOR GFR 1.63 MG/DL (0.70-1.30); GLOMERULAR FILTRATION RATE 43.8 (>42); MAGNESIUM LEVEL 2.3 MG/DL (1.8-2.4); POTASSIUM SERUM 4.1 MEQ/L (3.5-5.1); TOTAL PROTEIN 7.3 GM/DL (6.4-8.2)
== END ==
LOC: M LAB REF 15:45
PROVIDERS: ATTEND Nurse Practitioner Adult Health
DX: I42.8 Other cardiomyopathies (principal); E03.9 Hypothyroidism, unspecified; E11.9 Type 2 diabetes mellitus without complications; E78.00 Pure hypercholesterolemia, unspecified

== ENCOUNTER → 2020-11-10 | Outpatient (REF) | payer MEDICARE, BC ==
[2020-11-10 13:56] LABS: HEMATOCRIT 43.7 % (42.0-52.0); HEMOGLOBIN 13.7 g/dl (13.5-17.5); MEAN CORPUSCULAR HEMOGLOBIN 27.2 pg (27.0-33.0); MEAN CORPUSCULAR HGB CONC 31.4 g/dl (32.0-36.5); MEAN CORPUSCULAR VOLUME 86.9 fl (80.0-96.0); PLATELET COUNT, AUTOMATED 197 10^3/uL (150-450); RED BLOOD COUNT 5.03 10^6/uL (4.30-6.10); WHITE BLOOD COUNT 7.1 10^3/uL (4.0-10.0)
[2020-11-10 14:06] LABS: INR 3.02; PROTHROMBIN TIME 31.6 SECONDS (12.7-14.5)
[2020-11-10 14:31] LABS: ALBUMIN 3.8 GM/DL (3.2-5.2); BILIRUBIN,TOTAL 0.8 MG/DL (0.2-1.0); CREATININE FOR GFR 1.5 MG/DL (0.70-1.30); GLOMERULAR FILTRATION RATE 48.1 (>42); MAGNESIUM LEVEL 2.2 MG/DL (1.8-2.4); POTASSIUM SERUM 4.4 MEQ/L (3.5-5.1); TOTAL PROTEIN 7.5 GM/DL (6.4-8.2)
== END ==
LOC: M LAB REF 13:33
PROVIDERS: ATTEND Nurse Practitioner Adult Health
DX: I42.8 Other cardiomyopathies (principal)

== ENCOUNTER → 2020-11-17 | Outpatient (REF) | payer MEDICARE, BC ==
[2020-11-17 15:46] LABS: HEMATOCRIT 42.9 % (42.0-52.0); HEMOGLOBIN 13.3 g/dl (13.5-17.5); MEAN CORPUSCULAR HEMOGLOBIN 27.8 pg (27.0-33.0); MEAN CORPUSCULAR VOLUME 89.6 fl (80.0-96.0); PLATELET COUNT, AUTOMATED 161 10^3/uL (150-450); RED BLOOD COUNT 4.79 10^6/uL (4.30-6.10)
[2020-11-17 16:00] LABS: INR 3.77; PROTHROMBIN TIME 37.5 SECONDS (12.7-14.5)
[2020-11-17 16:14] LABS: ALBUMIN 3.5 GM/DL (3.2-5.2); BILIRUBIN,TOTAL 0.8 MG/DL (0.2-1.0); CALCIUM LEVEL 8.7 MG/DL (8.8-10.2); CREATININE FOR GFR 1.46 MG/DL (0.70-1.30); GLOMERULAR FILTRATION RATE 49.6 (>42); MAGNESIUM LEVEL 2.2 MG/DL (1.8-2.4); POTASSIUM SERUM 4.1 MEQ/L (3.5-5.1)
== END ==
LOC: M LAB REF 15:02
PROVIDERS: ATTEND Nurse Practitioner Adult Health
DX: I42.8 Other cardiomyopathies (principal)

== ENCOUNTER → 2020-11-24 | Outpatient (REF) | payer MEDICARE, BC ==
[2020-11-24 13:00] LABS: HEMOGLOBIN 14.9 g/dl (13.5-17.5); MEAN CORPUSCULAR HEMOGLOBIN 28.1 pg (27.0-33.0); MEAN CORPUSCULAR VOLUME 90.4 fl (80.0-96.0); PLATELET COUNT, AUTOMATED 173 10^3/uL (150-450); RED BLOOD COUNT 5.31 10^6/uL (4.30-6.10); WHITE BLOOD COUNT 8.3 10^3/uL (4.0-10.0)
[2020-11-24 13:12] LABS: INR 3.29; PROTHROMBIN TIME 33.8 SECONDS (12.7-14.5)
[2020-11-24 13:35] LABS: ALBUMIN 3.9 GM/DL (3.2-5.2); BILIRUBIN,TOTAL 0.9 MG/DL (0.2-1.0); CALCIUM LEVEL 9.1 MG/DL (8.8-10.2); CREATININE FOR GFR 1.57 MG/DL (0.70-1.30); GLOMERULAR FILTRATION RATE 45.6 (>42); MAGNESIUM LEVEL 2.3 MG/DL (1.8-2.4); POTASSIUM SERUM 4.4 MEQ/L (3.5-5.1); TOTAL PROTEIN 7.9 GM/DL (6.4-8.2)
== END ==
LOC: M LAB REF 11:55
PROVIDERS: ATTEND Nurse Practitioner Adult Health
DX: I42.8 Other cardiomyopathies (principal); Z79.01 Long term (current) use of anticoagulants

== ENCOUNTER → 2020-12-02 | Outpatient (REF) | payer MEDICARE, BC ==
[2020-12-02 13:37] LABS: HEMATOCRIT 45.1 % (42.0-52.0); HEMOGLOBIN 14.3 g/dl (13.5-17.5); MEAN CORPUSCULAR HEMOGLOBIN 28.5 pg (27.0-33.0); MEAN CORPUSCULAR HGB CONC 31.7 g/dl (32.0-36.5); PLATELET COUNT, AUTOMATED 182 10^3/uL (150-450); RED BLOOD COUNT 5.01 10^6/uL (4.30-6.10); WHITE BLOOD COUNT 8.5 10^3/uL (4.0-10.0)
[2020-12-02 13:52] LABS: INR 3.21; PROTHROMBIN TIME 33.1 SECONDS (12.7-14.5)
[2020-12-02 16:05] LABS: ALBUMIN 3.9 GM/DL (3.2-5.2); BILIRUBIN,TOTAL 0.9 MG/DL (0.2-1.0); CREATININE FOR GFR 1.59 MG/DL (0.70-1.30); GLOMERULAR FILTRATION RATE 44.9 (>42); MAGNESIUM LEVEL 2.4 MG/DL (1.8-2.4); POTASSIUM SERUM 4.4 MEQ/L (3.5-5.1); TOTAL PROTEIN 7.7 GM/DL (6.4-8.2)
== END ==
LOC: M LAB REF 13:18
PROVIDERS: ATTEND Nurse Practitioner Adult Health
DX: I42.8 Other cardiomyopathies (principal)

== ENCOUNTER → 2020-12-08 | Outpatient (REF) | payer MEDICARE, BC ==
[2020-12-08 12:31] LABS: HEMOGLOBIN 15.3 g/dl (13.5-17.5); MEAN CORPUSCULAR HEMOGLOBIN 29.1 pg (27.0-33.0); MEAN CORPUSCULAR HGB CONC 31.9 g/dl (32.0-36.5); MEAN CORPUSCULAR VOLUME 91.4 fl (80.0-96.0); PLATELET COUNT, AUTOMATED 175 10^3/uL (150-450); RED BLOOD COUNT 5.25 10^6/uL (4.30-6.10); WHITE BLOOD COUNT 7.6 10^3/uL (4.0-10.0)
[2020-12-08 12:44] LABS: INR 3.95; PROTHROMBIN TIME 38.8 SECONDS (12.7-14.5)
[2020-12-08 13:01] LABS: BILIRUBIN,TOTAL 0.8 MG/DL (0.2-1.0); CREATININE FOR GFR 1.43 MG/DL (0.70-1.30); GLOMERULAR FILTRATION RATE 50.8 (>42); MAGNESIUM LEVEL 2.4 MG/DL (1.8-2.4); TOTAL PROTEIN 7.9 GM/DL (6.4-8.2)
== END ==
LOC: M LAB REF 11:51
PROVIDERS: ATTEND Nurse Practitioner Adult Health
DX: I42.8 Other cardiomyopathies (principal); Z79.899 Other long term (current) drug therapy; Z79.01 Long term (current) use of anticoagulants

== ENCOUNTER → 2020-12-15 | Outpatient (REF) | payer MEDICARE, BC ==
[2020-12-15 18:36] LABS: HEMATOCRIT 46.7 % (42.0-52.0); HEMOGLOBIN 14.9 g/dl (13.5-17.5); MEAN CORPUSCULAR HEMOGLOBIN 29.3 pg (27.0-33.0); MEAN CORPUSCULAR HGB CONC 31.9 g/dl (32.0-36.5); MEAN CORPUSCULAR VOLUME 91.9 fl (80.0-96.0); PLATELET COUNT, AUTOMATED 182 10^3/uL (150-450); RED BLOOD COUNT 5.08 10^6/uL (4.30-6.10); WHITE BLOOD COUNT 7.5 10^3/uL (4.0-10.0)
[2020-12-15 18:45] LABS: INR 3.04; PROTHROMBIN TIME 31.8 SECONDS (12.7-14.5)
[2020-12-15 19:33] LABS: ALBUMIN 3.9 GM/DL (3.2-5.2); BILIRUBIN,TOTAL 0.8 MG/DL (0.2-1.0); CALCIUM LEVEL 9.5 MG/DL (8.8-10.2); CREATININE FOR GFR 1.43 MG/DL (0.70-1.30); GLOMERULAR FILTRATION RATE 50.8 (>42); MAGNESIUM LEVEL 2.1 MG/DL (1.8-2.4); POTASSIUM SERUM 4.5 MEQ/L (3.5-5.1); TOTAL PROTEIN 7.6 GM/DL (6.4-8.2)
== END ==
LOC: M LAB REF 16:27
PROVIDERS: ATTEND Nurse Practitioner Adult Health
DX: I42.8 Other cardiomyopathies (principal)

== ENCOUNTER → 2020-12-21 | Outpatient (REF) | payer MEDICARE, BC ==
[2020-12-21 12:54] LABS: HEMATOCRIT 46.4 % (42.0-52.0); HEMOGLOBIN 14.9 g/dl (13.5-17.5); MEAN CORPUSCULAR HGB CONC 32.1 g/dl (32.0-36.5); MEAN CORPUSCULAR VOLUME 93.4 fl (80.0-96.0); PLATELET COUNT, AUTOMATED 168 10^3/uL (150-450); RED BLOOD COUNT 4.97 10^6/uL (4.30-6.10); WHITE BLOOD COUNT 6.9 10^3/uL (4.0-10.0)
[2020-12-21 13:08] LABS: INR 3.84
[2020-12-21 13:25] LABS: ALBUMIN 3.5 GM/DL (3.2-5.2); BILIRUBIN,TOTAL 0.5 MG/DL (0.2-1.0); CREATININE FOR GFR 1.34 MG/DL (0.70-1.30); GLOMERULAR FILTRATION RATE 54.7 (>42); MAGNESIUM LEVEL 1.9 MG/DL (1.8-2.4); POTASSIUM SERUM 4.1 MEQ/L (3.5-5.1); TOTAL PROTEIN 7.1 GM/DL (6.4-8.2)
== END ==
LOC: M LAB REF 12:37
PROVIDERS: ATTEND Nurse Practitioner Adult Health
DX: I42.8 Other cardiomyopathies (principal)

== ENCOUNTER → 2020-12-29 | Outpatient (REF) | payer MEDICARE, BC ==
[2020-12-29 14:51] LABS: HEMATOCRIT 44.8 % (42.0-52.0); HEMOGLOBIN 14.2 g/dl (13.5-17.5); MEAN CORPUSCULAR HEMOGLOBIN 29.6 pg (27.0-33.0); MEAN CORPUSCULAR HGB CONC 31.7 g/dl (32.0-36.5); MEAN CORPUSCULAR VOLUME 93.3 fl (80.0-96.0); PLATELET COUNT, AUTOMATED 152 10^3/uL (150-450); WHITE BLOOD COUNT 8.1 10^3/uL (4.0-10.0)
[2020-12-29 15:03] LABS: INR 3.43; PROTHROMBIN TIME 34.9 SECONDS (12.7-14.5)
[2020-12-29 15:22] LABS: ALBUMIN 3.7 GM/DL (3.2-5.2); BILIRUBIN,TOTAL 0.9 MG/DL (0.2-1.0); CALCIUM LEVEL 8.6 MG/DL (8.8-10.2); CREATININE FOR GFR 1.6 MG/DL (0.70-1.30); GLOMERULAR FILTRATION RATE 44.6 (>42); TOTAL PROTEIN 7.5 GM/DL (6.4-8.2)
== END ==
LOC: M LAB REF 14:03
PROVIDERS: ATTEND Nurse Practitioner Adult Health
DX: I42.8 Other cardiomyopathies (principal)

== ENCOUNTER → 2021-01-06 | Outpatient (REF) | payer MEDICARE, BC ==
[2021-01-06 16:37] LABS: HEMATOCRIT 47.7 % (42.0-52.0); HEMOGLOBIN 15.2 g/dl (13.5-17.5); MEAN CORPUSCULAR HEMOGLOBIN 30.3 pg (27.0-33.0); MEAN CORPUSCULAR HGB CONC 31.9 g/dl (32.0-36.5); MEAN CORPUSCULAR VOLUME 95.2 fl (80.0-96.0); PLATELET COUNT, AUTOMATED 177 10^3/uL (150-450); RED BLOOD COUNT 5.01 10^6/uL (4.30-6.10); WHITE BLOOD COUNT 8.1 10^3/uL (4.0-10.0)
[2021-01-06 16:51] LABS: INR 3.27; PROTHROMBIN TIME 33.6 SECONDS (12.7-14.5)
[2021-01-06 16:58] LABS: ALBUMIN 3.9 GM/DL (3.2-5.2); BILIRUBIN,TOTAL 0.9 MG/DL (0.2-1.0); CALCIUM LEVEL 8.7 MG/DL (8.8-10.2); CREATININE FOR GFR 1.99 MG/DL (0.70-1.30); GLOMERULAR FILTRATION RATE 34.7 (>42); MAGNESIUM LEVEL 2.4 MG/DL (1.8-2.4); POTASSIUM SERUM 4.2 MEQ/L (3.5-5.1)
== END ==
LOC: M LAB REF 15:46
PROVIDERS: ATTEND Nurse Practitioner Adult Health
DX: I42.8 Other cardiomyopathies (principal)

== ENCOUNTER → 2021-01-11 | Outpatient (REF) | payer MEDICARE, BC ==
[2021-01-11 12:25] LABS: HEMATOCRIT 45.6 % (42.0-52.0); HEMOGLOBIN 14.8 g/dl (13.5-17.5); MEAN CORPUSCULAR HEMOGLOBIN 30.6 pg (27.0-33.0); MEAN CORPUSCULAR HGB CONC 32.5 g/dl (32.0-36.5); MEAN CORPUSCULAR VOLUME 94.4 fl (80.0-96.0); PLATELET COUNT, AUTOMATED 166 10^3/uL (150-450); RED BLOOD COUNT 4.83 10^6/uL (4.30-6.10); WHITE BLOOD COUNT 8.8 10^3/uL (4.0-10.0)
[2021-01-11 12:36] LABS: INR 4.41; PROTHROMBIN TIME 42.2 SECONDS (12.7-14.5)
[2021-01-11 12:52] LABS: ALBUMIN 3.8 GM/DL (3.2-5.2); BILIRUBIN,TOTAL 0.7 MG/DL (0.2-1.0); CALCIUM LEVEL 8.7 MG/DL (8.8-10.2); CREATININE FOR GFR 1.55 MG/DL (0.70-1.30); GLOMERULAR FILTRATION RATE 46.3 (>42); MAGNESIUM LEVEL 2.2 MG/DL (1.8-2.4); POTASSIUM SERUM 4.2 MEQ/L (3.5-5.1); TOTAL PROTEIN 7.4 GM/DL (6.4-8.2)
== END ==
LOC: M LAB REF 12:13
PROVIDERS: ATTEND Nurse Practitioner Adult Health
DX: I42.8 Other cardiomyopathies (principal)

== ENCOUNTER → 2021-01-19 | Outpatient (REF) | payer MEDICARE, BC ==
[2021-01-19 14:42] LABS: HEMATOCRIT 48.1 % (42.0-52.0); HEMOGLOBIN 15.6 g/dl (13.5-17.5); MEAN CORPUSCULAR HEMOGLOBIN 30.9 pg (27.0-33.0); MEAN CORPUSCULAR HGB CONC 32.4 g/dl (32.0-36.5); MEAN CORPUSCULAR VOLUME 95.2 fl (80.0-96.0); PLATELET COUNT, AUTOMATED 162 10^3/uL (150-450); RED BLOOD COUNT 5.05 10^6/uL (4.30-6.10); WHITE BLOOD COUNT 8.2 10^3/uL (4.0-10.0)
[2021-01-19 15:22] LABS: CALCIUM LEVEL 9.2 MG/DL (8.8-10.2); CREATININE FOR GFR 1.63 MG/DL (0.70-1.30); GLOMERULAR FILTRATION RATE 43.7 (>42); MAGNESIUM LEVEL 2.3 MG/DL (1.8-2.4); POTASSIUM SERUM 4.2 MEQ/L (3.5-5.1)
[2021-01-19 15:23] LABS: INR 2.84; PROTHROMBIN TIME 30.2 SECONDS (12.7-14.5)
== END ==
LOC: M LAB REF 14:12
PROVIDERS: ATTEND Nurse Practitioner Adult Health
DX: I42.8 Other cardiomyopathies (principal)

== ENCOUNTER → 2021-01-26 | Outpatient (REF) | payer MEDICARE, BC ==
[2021-01-26 16:39] LABS: HEMATOCRIT 46.6 % (42.0-52.0); HEMOGLOBIN 15.2 g/dl (13.5-17.5); MEAN CORPUSCULAR HGB CONC 32.6 g/dl (32.0-36.5); MEAN CORPUSCULAR VOLUME 95.1 fl (80.0-96.0); PLATELET COUNT, AUTOMATED 156 10^3/uL (150-450); WHITE BLOOD COUNT 8.3 10^3/uL (4.0-10.0)
[2021-01-26 17:07] LABS: INR 3.14; PROTHROMBIN TIME 32.6 SECONDS (12.7-14.5)
[2021-01-26 17:19] LABS: ALBUMIN 3.9 GM/DL (3.2-5.2); BILIRUBIN,TOTAL 0.8 MG/DL (0.2-1.0); CALCIUM LEVEL 9.4 MG/DL (8.8-10.2); CREATININE FOR GFR 1.54 MG/DL (0.70-1.30); GLOMERULAR FILTRATION RATE 46.6 (>42); MAGNESIUM LEVEL 2.3 MG/DL (1.8-2.4); POTASSIUM SERUM 4.2 MEQ/L (3.5-5.1); TOTAL PROTEIN 7.7 GM/DL (6.4-8.2)
== END ==
LOC: M LAB REF 15:49
PROVIDERS: ATTEND Nurse Practitioner Adult Health
DX: I42.8 Other cardiomyopathies (principal)

== ENCOUNTER → 2021-02-02 | Outpatient (REF) | payer MEDICARE, BC ==
[2021-02-02 13:42] LABS: HEMOGLOBIN A1c 6.8 %
== END ==
LOC: M LAB REF 11:56
PROVIDERS: ATTEND Internal Medicine
DX: E11.9 Type 2 diabetes mellitus without complications (principal)

== ENCOUNTER → 2021-02-02 | Outpatient (REF) | payer MEDICARE, BC ==
[2021-02-02 12:12] LABS: HEMATOCRIT 45.7 % (42.0-52.0); HEMOGLOBIN 14.8 g/dl (13.5-17.5); MEAN CORPUSCULAR HEMOGLOBIN 31.2 pg (27.0-33.0); MEAN CORPUSCULAR HGB CONC 32.4 g/dl (32.0-36.5); MEAN CORPUSCULAR VOLUME 96.4 fl (80.0-96.0); PLATELET COUNT, AUTOMATED 161 10^3/uL (150-450); RED BLOOD COUNT 4.74 10^6/uL (4.30-6.10)
[2021-02-02 12:24] LABS: INR 3.09; PROTHROMBIN TIME 32.2 SECONDS (12.7-14.5)
[2021-02-02 12:42] LABS: ALBUMIN 3.7 GM/DL (3.2-5.2); CALCIUM LEVEL 9.2 MG/DL (8.8-10.2); CREATININE FOR GFR 1.54 MG/DL (0.70-1.30); GLOMERULAR FILTRATION RATE 46.6 (>42); MAGNESIUM LEVEL 2.4 MG/DL (1.8-2.4); POTASSIUM SERUM 4.2 MEQ/L (3.5-5.1); TOTAL PROTEIN 7.4 GM/DL (6.4-8.2)
== END ==
LOC: M LAB REF 11:54
PROVIDERS: ATTEND Nurse Practitioner Adult Health
DX: I42.8 Other cardiomyopathies (principal); E11.9 Type 2 diabetes mellitus without complications

== ENCOUNTER → 2021-02-09 | Outpatient (REF) | payer MEDICARE, BC ==
[2021-02-09 16:58] LABS: HEMATOCRIT 44.6 % (42.0-52.0); HEMOGLOBIN 14.5 g/dl (13.5-17.5); MEAN CORPUSCULAR HEMOGLOBIN 31.5 pg (27.0-33.0); MEAN CORPUSCULAR HGB CONC 32.5 g/dl (32.0-36.5); MEAN CORPUSCULAR VOLUME 96.7 fl (80.0-96.0); PLATELET COUNT, AUTOMATED 170 10^3/uL (150-450); RED BLOOD COUNT 4.61 10^6/uL (4.30-6.10); WHITE BLOOD COUNT 7.4 10^3/uL (4.0-10.0)
[2021-02-09 17:10] LABS: PROTHROMBIN TIME 31.4 SECONDS (12.7-14.5)
[2021-02-09 17:33] LABS: ALBUMIN 3.6 GM/DL (3.2-5.2); BILIRUBIN,TOTAL 0.9 MG/DL (0.2-1.0); CALCIUM LEVEL 9.1 MG/DL (8.8-10.2); CREATININE FOR GFR 1.55 MG/DL (0.70-1.30); GLOMERULAR FILTRATION RATE 46.3 (>42); MAGNESIUM LEVEL 2.1 MG/DL (1.8-2.4); POTASSIUM SERUM 4.7 MEQ/L (3.5-5.1); TOTAL PROTEIN 7.3 GM/DL (6.4-8.2)
== END ==
LOC: M LAB REF 16:31
PROVIDERS: ATTEND Nurse Practitioner Adult Health
DX: I50.9 Heart failure, unspecified (principal); R79.0 Abnormal level of blood mineral; Z79.01 Long term (current) use of anticoagulants; Z79.899 Other long term (current) drug therapy

== ENCOUNTER → 2021-02-15 | Outpatient (REF) | payer MEDICARE, BC ==
[2021-02-15 13:50] LABS: HEMATOCRIT 44.2 % (42.0-52.0); HEMOGLOBIN 14.3 g/dl (13.5-17.5); MEAN CORPUSCULAR HEMOGLOBIN 31.8 pg (27.0-33.0); MEAN CORPUSCULAR HGB CONC 32.4 g/dl (32.0-36.5); MEAN CORPUSCULAR VOLUME 98.4 fl (80.0-96.0); PLATELET COUNT, AUTOMATED 178 10^3/uL (150-450); RED BLOOD COUNT 4.49 10^6/uL (4.30-6.10); WHITE BLOOD COUNT 8.6 10^3/uL (4.0-10.0)
[2021-02-15 14:02] LABS: INR 3.59
[2021-02-15 14:12] LABS: ALBUMIN 3.7 GM/DL (3.2-5.2); CALCIUM LEVEL 8.5 MG/DL (8.8-10.2); CREATININE FOR GFR 1.55 MG/DL (0.70-1.30); GLOMERULAR FILTRATION RATE 46.3 (>42); MAGNESIUM LEVEL 2.1 MG/DL (1.8-2.4); POTASSIUM SERUM 4.3 MEQ/L (3.5-5.1); TOTAL PROTEIN 7.4 GM/DL (6.4-8.2)
== END ==
LOC: M LAB REF 13:32
PROVIDERS: ATTEND Nurse Practitioner Adult Health
DX: I50.9 Heart failure, unspecified (principal); R79.0 Abnormal level of blood mineral; Z79.899 Other long term (current) drug therapy; Z79.01 Long term (current) use of anticoagulants

== ENCOUNTER → 2021-02-23 | Outpatient (REF) | payer MEDICARE, BC ==
[2021-02-23 13:00] LABS: HEMATOCRIT 44.7 % (42.0-52.0); HEMOGLOBIN 14.5 g/dl (13.5-17.5); MEAN CORPUSCULAR HEMOGLOBIN 31.5 pg (27.0-33.0); MEAN CORPUSCULAR HGB CONC 32.4 g/dl (32.0-36.5); PLATELET COUNT, AUTOMATED 162 10^3/uL (150-450); RED BLOOD COUNT 4.61 10^6/uL (4.30-6.10); WHITE BLOOD COUNT 7.8 10^3/uL (4.0-10.0)
[2021-02-23 13:10] LABS: INR 2.44; PROTHROMBIN TIME 26.9 SECONDS (12.7-14.5)
[2021-02-23 13:59] LABS: ALBUMIN 3.6 GM/DL (3.2-5.2); BILIRUBIN,TOTAL 0.9 MG/DL (0.2-1.0); CREATININE FOR GFR 1.58 MG/DL (0.70-1.30); GLOMERULAR FILTRATION RATE 45.3 (>42); MAGNESIUM LEVEL 2.1 MG/DL (1.8-2.4); POTASSIUM SERUM 4.1 MEQ/L (3.5-5.1); TOTAL PROTEIN 7.4 GM/DL (6.4-8.2)
== END ==
LOC: M LAB REF 12:18
PROVIDERS: ATTEND Nurse Practitioner Adult Health
DX: I50.9 Heart failure, unspecified (principal); R79.0 Abnormal level of blood mineral; Z79.899 Other long term (current) drug therapy; Z79.01 Long term (current) use of anticoagulants

== ENCOUNTER → 2021-03-02 | Outpatient (REF) | payer MEDICARE, BC ==
[2021-03-02 13:02] LABS: HEMATOCRIT 44.7 % (42.0-52.0); HEMOGLOBIN 14.6 g/dl (13.5-17.5); MEAN CORPUSCULAR HEMOGLOBIN 31.6 pg (27.0-33.0); MEAN CORPUSCULAR HGB CONC 32.7 g/dl (32.0-36.5); MEAN CORPUSCULAR VOLUME 96.8 fl (80.0-96.0); PLATELET COUNT, AUTOMATED 198 10^3/uL (150-450); RED BLOOD COUNT 4.62 10^6/uL (4.30-6.10); WHITE BLOOD COUNT 8.4 10^3/uL (4.0-10.0)
[2021-03-02 13:13] LABS: INR 3.24; PROTHROMBIN TIME 33.4 SECONDS (12.7-14.5)
[2021-03-02 16:48] LABS: ALBUMIN 3.8 GM/DL (3.2-5.2); BILIRUBIN,TOTAL 0.8 MG/DL (0.2-1.0); CREATININE FOR GFR 1.31 MG/DL (0.70-1.30); GLOMERULAR FILTRATION RATE 56.2 (>42); MAGNESIUM LEVEL 2.4 MG/DL (1.8-2.4); POTASSIUM SERUM 4.2 MEQ/L (3.5-5.1); TOTAL PROTEIN 7.6 GM/DL (6.4-8.2)
== END ==
LOC: M LAB REF 12:36
PROVIDERS: ATTEND Nurse Practitioner Adult Health
DX: I50.9 Heart failure, unspecified (principal); R79.0 Abnormal level of blood mineral; Z79.899 Other long term (current) drug therapy; Z79.01 Long term (current) use of anticoagulants

== ENCOUNTER → 2021-03-09 | Outpatient (REF) | payer MEDICARE, BC ==
[2021-03-09 12:42] LABS: HEMATOCRIT 47.2 % (42.0-52.0); HEMOGLOBIN 15.3 g/dl (13.5-17.5); MEAN CORPUSCULAR HEMOGLOBIN 31.5 pg (27.0-33.0); MEAN CORPUSCULAR HGB CONC 32.4 g/dl (32.0-36.5); MEAN CORPUSCULAR VOLUME 97.3 fl (80.0-96.0); PLATELET COUNT, AUTOMATED 207 10^3/uL (150-450); RED BLOOD COUNT 4.85 10^6/uL (4.30-6.10); WHITE BLOOD COUNT 9.1 10^3/uL (4.0-10.0)
[2021-03-09 12:53] LABS: INR 2.77; PROTHROMBIN TIME 29.6 SECONDS (12.7-14.5)
[2021-03-09 13:10] LABS: ALBUMIN 3.7 GM/DL (3.2-5.2); BILIRUBIN,TOTAL 0.8 MG/DL (0.2-1.0); CALCIUM LEVEL 9.3 MG/DL (8.8-10.2); CREATININE FOR GFR 1.38 MG/DL (0.70-1.30); GLOMERULAR FILTRATION RATE 52.9 (>42); MAGNESIUM LEVEL 2.2 MG/DL (1.8-2.4); POTASSIUM SERUM 4.9 MEQ/L (3.5-5.1); TOTAL PROTEIN 7.5 GM/DL (6.4-8.2)
== END ==
LOC: M LAB REF 12:23
PROVIDERS: ATTEND Nurse Practitioner Adult Health
DX: I50.9 Heart failure, unspecified (principal); R79.0 Abnormal level of blood mineral; Z79.899 Other long term (current) drug therapy; Z79.01 Long term (current) use of anticoagulants